=== PATIENT | female | born 1955 | race African-American/Black ===

== ENCOUNTER → 2018-01-11 | Outpatient (CLI) | payer OTHER ==
[~2018-01-11] MED LIST: ACCUNEB SO1.25 MG/1 INH; ACETAMINOPHEN325 M1 PO; ADVAIR 500-501 EACH INH; ALAVERT10 MG PO; ALBUTEROL2.5 MG/31 INH; ALLEGRA ALLERG180 MG PO; AMARYL4 MG PO; AMITIZA 24 MCG24 MC1 PO; ASA81BEC PO; BENAZEPRIL HCL40 MG PO; BENAZEPRIL HCL5 MG PO; BENTYL20 MG PO; CARVEDILOL25 MG PO; CLARITIN-D 24 H1 TA1 PO; COLACE100 MG PO; COMBIVENT RESPIM4 GM INH; CRESTOR20 MG PO; DEXILANT60 MG PO; DIGOXIN125 MCG PO; DILTIAZEM 24HR180 M1 PO; DOXYCYCLINE 10100 M1 PO; DUONEB 2.5-0.5 M3 ML INH; FLONASE 0.05%50 MCG NASAL; FLUCONAZOLE 10100 MG PO; GLUCOPHAGE1000 MG PO; GLUMETZA1000 PO; LANOXIN 0.120.125 M1 PO; LANTUS SUBQ; LASIX 40 MG TAB40 M1 PO; LEVAQUIN 500 M500 M2 PO; LUMIGAN2.5 M1 OPHTHALMIC; MAGNESIUM250 M1 PO; MELATONIN3 MG PO; MENOPAUSE SUPPO20 MG PO; MENOPAUSE SUPPORT PO; MIRALAX17 GM PO; NASONEX17 GM NASAL; NEURONTIN 300300 M1 PO; NEXIUM 40 MG CA40 M1 PO; NEXIUM40 MG PO; NOVOLOG100 UNIT/1 SUBQ; PACERONE 200 M200 M1; PACERONE 200 M200 M1 PO; POTASSIUM CHLO20 ME1 PO; PREDNISONE 20 M20 M1 PO; PREDNISONE 20 M20 MG PO; RANEXA 500 MG500 M1 PO; ROBAXIN 750 MG750 M1 PO; SINGULAIR 10 MG10 M1 PO; SOTALOL 120 MG120 M1 PO; SPIRIVA INH; SSD CREAM 1% 5050 G1 TOP; SYMBICORT160 MCG/4. INH; TESSALON PERLE100 MG PO; TRAMADOL 50 MG50 MG PO; VITAMIN B-12500 MCG PO; XALATAN2.5 ML OP; XARELTO10 M1 PO; XARELTO10 MG PO; XARELTO20 MG PO; XOPENEX HFA15 GM INH; ZOLOFT100 MG PO
== END ==
LOC: RAD 10:09
DX: Z12.31 Encounter for screening mammogram for malignant neoplasm of breast (principal)

== ENCOUNTER 2018-12-17 18:45 | Inpatient (IN) | payer OTHER ==
[~2018-12-17] VITALS: Ht 172.7 cm; Wt 123.4 kg
--- NOTE | ~2018-12-17 | O ---
[facility] [place] [address] OPERATIVE REPORT Name: AQUILES BRAN Room #: 452-P ADM IN M.R.#: [id number] Admission: 12/17/18 ������������������ Attend Phys: Juan Skinner MD Discharge: ������������������ Date of : 57 Report #: [id number] THIS REPORT FOR: //name// CC: Oliver Luciano PREOPERATIVE DIAGNOSIS: Left trimalleolar fracture. POSTOPERATIVE DIAGNOSIS: Left trimalleolar fracture. PROCEDURE: ORIF of trimalleolar fracture with fixation of the fibula and the medial malleolus and syndesmotic screws for support because of fragile patient. ANESTHESIA: General with a leg block and a local block. TOURNIQUET: Thigh, 350. DESCRIPTION OF PROCEDURE: The patient was transported to the Operating Room and placed on the operating table in supine position. The left lower extremity was prepped and draped in the usual sterile manner. General anesthesia was already administered, leg block was already given. Attention directed to the left ankle. Started with the left lateral ankle first, so a 10 cm incision was made along the lateral aspect of the ankle from the distal fibula proximally. Incision was deepened via sharp and blunt dissection being careful to retract all vital structures. Incision was carried down to the bone. The fracture fragment was easily visualized and cleaned of any interposing soft tissue and then reduced with bone reduction clamps. Excellent reduction was noted right away. C-arm was used to identify this good reduction and good length of the fibula, which was noted. Then, a lag screw was placed across the fracture fragments in an anterior to posterior position approximately 18 mm, ____ cortical screws with a lag technique. Then, a distal fibular plate from Sc[place]ey set was applied. ____ was applied using AO fixation technique. Excellent rigid fixation was noted. C-arm showed excellent length and rigid fixation. Attention was turned to the medial malleolus where an incision was made along the medial malleolus and carried down to ____ of the fracture site using [facility] [address] [place] [address] OPERATIVE REPORT Name: AQUILES BRAN Room #: 452-P [facility] IN .R.#: [id number] Admission: 12/17/18 ������������������ Attend Phys: Juan Skinner MD Discharge: ������������������ Date of : 57 Report #: [id number] and blunt dissection. ____ easily cleaned out the fracture fragment of any interposing soft tissue and then reduced with bone reduction clamps. I then used 4.0 cannulated screws for reduction using AO fixation technique. Both wounds were flushed with normal saline and bacitracin mix. It was decided to put more screws in across the fibula and tibia for more support. Her bone was somewhat soft, but she is very fragile and have a feeling she will have difficult time staying off her foot and I think she will have a difficult time controlling her blood sugars even though we have somebody talking about it and try to adjust them as much as possible after the last 3 days in the hospital. Substitutes and running screws were crossed through more support. The wounds were then closed using 2-0 Vicryl for deep tissue, 3-0 Vicryl for subcutaneous tissue and then 2-0 nylon for approximating the skin using a running baseball stitch. I dressed with Xeroform, fluffs, Jin, and put in a sugar tong posterior splint keeping the foot and ankle neutral position. The patient tolerated the procedure well and left the Operating Room in stable condition with neurovascular status vital status intact. The patient will be nonweightbearing. Follow up in my office in approximately 1 week. We will put her on p.o. Demerol, also she is going to bulk picker the oxycodone and Percocet. ��������������������������������������������� ���������������������������������������� By: ��������������������������������������������� 1521 1805 Juan Ramon Luciano, DWIGHT /nt
[2018-12-17 18:54] VITALS: BP 109/76; BP 168/100
[2018-12-17 19:35] LABS: ABSOLUTE NEUTROPHILS 8.6 thou/uL (1.4-8.2); BASOPHILS 0.6 % (0.0-2.0); EOSINOPHILS 1.1 % (0.0-3.0); HEMATOCRIT 41.9 % (37.0-47.0); HEMOGLOBIN 13.8 gm/dL (12.0-15.0); LYMPHOCYTES 15.7 % (24.0-44.0); MCHC 33.1 g/dL (28.0-37.0); MCV 84.7 fL (80.0-100.0); MONOCYTES 8.3 % (1.0-8.0); PLATELET COUNT 372 thou/uL (150-400); POLYS 74.3 % (36.0-66.0); RBC 4.94 mil/uL (4.20-5.00); RDW 15.5 % (10.5-14.5); WBC 11.6 thou/uL (4.0-11.0)
[2018-12-17 19:39] LABS: ANION GAP 9 mmol/L (7-16); BUN 27 mg/dL (7-18); CALCIUM 9.6 mg/dL (8.5-10.1); CHLORIDE 92 mmol/L (98-107); CO2 35 mmol/L (21-32); CREATININE 1.4 mg/dL (0.6-1.0); GLUCOSE 133 mg/dL (74-106); SODIUM 136 mmol/L (136-145)
[2018-12-17 19:40] LABS: POTASSIUM 2.7 mmol/L (3.5-5.1)
[2018-12-17 19:46] LABS: URINE BILIRUBIN NEGATIVE (Negative); URINE BLOOD NEGATIVE (Negative); URINE CLARITY CLEAR; URINE COLOR YELLOW; URINE GLUCOSE-RANDOM* NEGATIVE (Negative); URINE KETONES NEGATIVE (Negative); URINE LEUKOCYTES NEGATIVE (Negative); URINE NITRITE NEGATIVE (Negative); URINE PROTEIN (DIPSTICK) NEGATIVE (Negative); URINE UROBILINOGEN 0.2 E.U./dl (0.2-1.0)
[2018-12-17 19:48] LABS: ALBUMIN 3.3 g/dL (3.4-5.0); MAGNESIUM 1.9 mg/dL (1.8-2.4); SGOT 27 U/L (15-37); SGPT 27 U/L (30-65); TOTAL BILIRUBIN 0.2 mg/dL (<0.1-1.0); TOTAL PROTEIN 8.3 g/dL (6.4-8.2); TROPONIN-I <0.06 ng/mL (<0.06)
[2018-12-17 22:14] VITALS: BP 172/76
[2018-12-17 22:37] VITALS: BP 141/67
[2018-12-17 23:16] VITALS: BP 134/84
--- NOTE | 2018-12-18 02:00 | H ---
[facility] [place] [address] HISTORY AND PHYSICAL Name: AQUILES BRAN Room #: 452-P ADM IN M.R.#: [id number] Admission: 12/17/18 ������������������ Attend Phys: Jc Cabrera MD Discharge: ������������������ Date of : 57 Report #: [id number] THIS REPORT FOR: //name// CC: Oliver Luciano DATE OF SERVICE: 12/17/2018 HISTORY OF PRESENT ILLNESS: This is a 63-year-old -Iranian female who passed out today and fell and she fractured her left ankle. PAST MEDICAL HISTORY: Her past medical history is significant for sarcoidosis, high cholesterol, peripheral neuropathy, hypertension, diabetes, COPD, PTSD, major depression, panic attacks and irritable bowel syndrome. MEDICATIONS: Are as follows: Insulin 30 units subq at bedtime, fexofenadine 180 mg daily, tramadol 50 mg, mometasone furoate, rivaroxaban, Xarelto 20 mg after dinner, potassium chloride 20 mEq p.o. b.i.d., Amaryl 4 mg b.i.d., diltiazem 250 mg b.i.d., Nexium 40 mg, melatonin 6 mg p.o. at bedtime, sliding scale insulin, Amitiza, Lotensin 5 mg, gabapentin 300 mg p.o. t.i.d., sertraline 100 mg 2 tablets daily, Lasix 40 mg, metformin 1000 mg and albuterol nebulizer 2.5. ALLERGIES: ASPIRIN, AZITHROMYCIN, CODEINE, ERYTHROMYCIN, IODINATED CONTRAST AND OXYCODONE. SOCIAL HISTORY: She has no history of tobacco use. No history of alcohol use. No recreational drugs. PAST SURGICAL HISTORY: Previous surgeries include partial hysterectomy, glaucoma, AFib cardioverted x 2 in 2013 and AFib with RVR ablation in 2013. REVIEW OF SYSTEMS : See the chart. SOCIAL HISTORY: The patient is not working. She is with her family today. She has a little bit of anxiety in the ER today. PHYSICAL EXAMINATION: GENERAL: The patient is a well-developed, well-nourished, obese -Iranian female. HEENT: PERRLA. NECK: Supple. No lymphadenopathy. HEART: Regular rate and rhythm, without murmurs or gallops. LUNGS: Clear to auscultation bilaterally. No wheezing. [facility] [address] [place] [address] HISTORY AND PHYSICAL Name: AQUILES BRAN Room #: 452-P [facility] IN M.R.#: [id number] Admission: 12/17/18 ������������������ Attend Phys: Jc Cabrera MD Discharge: ������������������ Date of : 57 Report #: [id number] LABORATORY DATA: The labs show potassium of 2.7, sodium of 136, glucose of 133 and BUN was 27. Alkaline phosphatase 201. X-rays reveal a trimalleolar fracture, displaced. She has intact neurovascular. She does have pain with palpation of the leg, so she is not completely neuropathic. I could feel both dorsalis pedis and posterior tibial arteries easily. ASSESSMENT : Trimalleolar displaced fracture, left. PLAN: Plan is to do a reduction in the ER today after a 15 mL of 0.5% ankle block. She did quite well with it. Then we reduced it and splinted it with a posterior and sugar tong splint. The patient did quite well with it and had no pain while we were doing it. The patient is also complaining of some right ankle pain. There was no bone tenderness. No pain with range of motion, but the x-rays anyways are pending. The patient surgery could be as early as thursday. Pt will need medical eval and clearance before surgery. I will wait for their opinion before setting a time for surger. Pt is Xarelto- this could delay surgery as well. Thank you for your assistance. Please call me if you have any questions. ��������������������������������������������� <ELECTRONICALLY SIGNED> ���������������������������������������� By: Juan Ramon Luciano DPM ��������������������������������������������� 12/18/18 0200 2220 2317 Juan Ramon Luciano DPM /rosie
--- NOTE | 2018-12-18 02:48 | EKG ---
[address] 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 : 1955 Requested By: Barber Ojeda Order Number: [id number] MD: Eloy House Measurements Intervals [place] Rate: 80 P: VT: QRS: 142 QRSD: 144 T: 127 QT: 457 QTc: 528 Interpretive Statements ventricular-paced rhythm No further analysis attempted due to paced rhythm Compared to ECG 03/05/2014 12:25:33 No significant changes Electronically Signed On 12-18-2018 2:48:34 [employer] OPERATOR by Eloy House [email or web address] ��������������������������������������������� <ELECTRONICALLY SIGNED> ���������������������������������������� By: Eloy House MD ��������������������������������������������� 12/18/18 0248 19 19 Eloy House MD /CAITY
[2018-12-18] MEDS ORDERED: TOUJEO MAX300 UNIT/1 SUBQ (03:22)
[2018-12-18] MEDS ORDERED: VICTOZA0.6 MG/0.1 SUBQ (03:23)
[2018-12-18] MEDS ORDERED: LASIX 80 MG TAB80 MG PO (03:24)
[2018-12-18] MEDS ORDERED: METOPROLOL ER-1 EAC1 PO (03:26)
[2018-12-18 03:41] VITALS: BP 116/62
[2018-12-18 05:44] LABS: HEMATOCRIT 40.2 % (37.0-47.0); HEMOGLOBIN 12.8 gm/dL (12.0-15.0); MCH 27.1 pg (26.0-34.0); MCHC 31.9 g/dL (28.0-37.0); MCV 84.9 fL (80.0-100.0); RBC 4.73 mil/uL (4.20-5.00); RDW 15.6 % (10.5-14.5)
[2018-12-18 05:59] LABS: CREATININE 1.2 mg/dL (0.6-1.0)
[2018-12-18 06:05] LABS: POTASSIUM 2.7 mmol/L (3.5-5.1)
--- NOTE | 2018-12-18 07:47 | NUR ---
ADMIT PT ADMITTED TO ROOM 452 FROM ED WITH A LEFT ANKLE FRACTURE RATING PAIN AN 8 TO 10 TAKING FENTANYL WITH NO RELIEF, REPORTED TO JOE CHANDLER AND ORDER CHANGED TO MORPHINE GIVEN 4 MG IVP AND PT FELL ASLEEP SHORTLY AFTER. POSSIBLE ORIF THIS SHIFT.
[2018-12-18 07:58] VITALS: BP 150/73
[2018-12-18 16:25] VITALS: BP 153/63
[2018-12-18 17:41] LABS: CALCIUM 8.9 mg/dL (8.5-10.1); CREATININE 1.3 mg/dL (0.6-1.0); MAGNESIUM 1.9 mg/dL (1.8-2.4)
[2018-12-18 17:51] LABS: POTASSIUM 2.6 mmol/L (3.5-5.1)
[2018-12-18 19:32] VITALS: BP 113/62
[2018-12-19 03:33] VITALS: BP 114/64
[2018-12-19 06:39] LABS: CALCIUM 9.3 mg/dL (8.5-10.1); CREATININE 1.1 mg/dL (0.6-1.0); POTASSIUM 3.1 mmol/L (3.5-5.1)
[2018-12-19 07:52] VITALS: BP 146/56
--- NOTE | 2018-12-19 08:50 | NUR ---
PROGRESS PT UNHAPPY WITH ASSIGNED NURSE AT START OF SHIFT REASSIGNED TO SELF PT CALMED DOWN AND WAS COOPERATIVE WITH CARES AFTER. BED BATH PROVIDED IVF'S AND POTASSIUM GIVEN ORDERED, UP TO BSC TO VOID , HAD USED FEMALE EXTERNAL CATHETER BUT PT KEPT REMOVING IT. TAKING 1.75 MG DILAUDID FOR PAIN WITH SOME EFFECT. LEFT FOOT SPLINTED AND WRAPPED ABLE TO WIGGLE TOES SENSATION INTACT. IV PULLED OUT DURING TRANSFER, DAYSHIFT TO START NEW PRIOR TO SURGERY.
--- NOTE | 2018-12-19 10:55 | 2DMMODE ---
[place] [address] [facility] [place] [address] 2 D/M-MODE ECHOCARDIOGRAM Name: AQUILES BRAN Room #: 452-P ADM IN M.R.#: [id number] ������������� Admission: 12/17/18 ������������� Attend Phys: Jc Cabrera MD Discharge: ��� ������������� ��� Date of : 57 Date of Service: 12/19/18 1054 �� Report #: [id number] �������� ��������������������������������������������[id number] THIS REPORT FOR: //name// APPROVED REPORT Study performed: 12/18/2018 14:10:52 EXAM: Comprehensive 2D, Doppler, and color-flow Echocardiogram Patient Location: Bedside Room #: 452 Status: routine BSA: 2.12 HR: 80 bpm BP: 150/73 mmHg Rhythm: Sinus Arrythmia Other Information Study Quality: Fair Indications CAD, stents, ICD, AFib, COPD, DVT, HLD, Sarcoidosis, Diabetes, Syncope, Dizziness 2D Dimensions RVDd: 35.12 mm IVSd: 10.32 (7-11mm) LVOT Diam: 22.38 (18-24mm) LVDd: 46.03 mm PWd: 11.16 (7-11mm) Ascending Ao: 31.56 (22-36mm) LVDs: 25.00 (25-40mm) Aortic Root: 32.40 mm IVC: 15.00 mm Volumes Left Atrial Volume (Systole) Single Plane 4CH: 44.22 mL Single Plane 2CH: 51.42 mL LA ESV Index: 26.14 mL/m2 Aortic Valve AoV Peak Dimitri.: 1.42 m/s AO Peak Gr.: 8.16 mmHg LVOT Max P.36 mmHg LVOT Max V: 1.16 m/s LUPIS Vmax: 3.20 cm2 Mitral Valve IVRT: 84.58 ms [facility] [address] [address] 2 D/M-MODE ECHOCARDIOGRAM Name: AQUILES BRAN SHABBIR Room #: 452[facility] IN .R.#: [id number] ������������� Admission: 12/17/18 ������������� Attend Phys: Jc Cabrera MD Discharge: ��� ������������� ��� Date of : 57 Date of Service: 12/19/18 1054 �� Report #: [id number] �������� ��������������������������������������������[id number] Pulmonary Valve PV Peak Dimitri.: 0.99 m/s PV Peak Gr.: 3.96 mmHg Tricuspid Valve TR Peak Dimitri.: 3.23 m/s RAP Estimate: 5.00 mmHg TR Peak Gr.: 41.77 mmHg PA Pressure: 47.00 mmHg Left Ventricle The left ventricle is normal size. There is normal LV segmental wall motion. There is normal left ventricular wall thickness. The left ventricular systolic function is normal. The left ventricular ejection fraction is within the normal range. LVEF is 55-60%. This study is not technically sufficient to allow evaluation of the LV diastolic function. Right Ventricle The right ventricle is normal size. The right ventricular systolic function is normal. Atria The left atrium size is normal. Aortic Valve Aortic valve is not well visualized, appears normal. No aortic regurgitation is present. There is no aortic valvular stenosis. Mitral Valve The mitral valve is normal in structure. Trace to mild mitral regurgitation. No evidence of mitral valve stenosis. Tricuspid Valve Tricuspid valve is grossly normal in structure and function. Mild tricuspid regurgitation. Estimated PAP of 45 mmHg. Pulmonic Valve Pulmonic valve is not well visualized. Great Vessels The aortic root is normal in size. The ascending aorta is normal in size. IVC is normal in size and collapses >50% with inspiration. Pericardium There is no pericardial effusion. [facility] [address] [place] [address] 2 D/M-MODE ECHOCARDIOGRAM Name: AQUILES BRAN Room #: 452-P [facility] IN M.R.#: [id number] ������������� Admission: 12/17/18 ������������� Attend Phys: Jc Cabrera MD Discharge: ��� ������������� ��� Date of : 57 Date of Service: 12/19/18 1054 �� Report #: [id number] �������� ��������������������������������������������[id number] <Conclusion> The left ventricular systolic function is normal. There is normal LV segmental wall motion. LVEF is 55-60%. Aortic valve is not well visualized, appears normal. No aortic stenosis or insufficiency. The mitral valve is normal in structure. Trace to mild mitral regurgitation. Mild tricuspid regurgitation. Estimated pulmonary artery pressure of 45 mmHg. There is no pericardial effusion. ��������������������������������������������� <ELECTRONICALLY SIGNED> ���������������������������������������� By: Christo Alonso MD, [facility] ��������������������������������������������� 12/19/18 1054 1054 1054 Christo Alonso MD, FAC /INF
--- NOTE | 2018-12-19 14:45 | NUR ---
ASSUMED CARE 0700. AXOX4. LLE SPLINT FOR ANKLE FX. SX CANCELLED PER MD FOR NOT HAVING ECHO RESULTS READY AND UNCONTROLLED BLOOD SUGAR. LATER ON, FOUND OUT ECHO WAS ALREADY DONE YESTURDAY AND RESULTS WERENT READY TILL THIS MORNING. CALLED SURGICAL DEPARTMENT TO SEE IF THEY CAN TAKE THE PATIENT DOWN, NO ANSWER. CALLED AND NOTIFIED OF THE SITUATION. NNO AT THIS TIME. POTASSIUM AND MAGNESIUM REPLACED PER MD ORDER. PAIN MANAGED WITH IV PAIN MEDS. IV REPLACED ON RH DUE TO PT PULLING THE IV OUT. PT IS VERY IRRITABLE. EXTERNAL FEMAKE CATHETER APPLIED. LLE ELEVATED. NO S/S ACUTE DISTRESS NOTED OR REPORTED AT THIS TIME. WILL CONT TO MONITOR FOR ANY CHANGES IN CONDITION.
[2018-12-19 15:38] VITALS: BP 98/56
--- NOTE | 2018-12-20 02:30 | NUR ---
PT GIVEN IV MORPHINE AND FENTANLY FOR PAIN PT WAS ABLE TO GET PAIN RELIEF AND GET SOME SLEEP PT NPO SINCE MIDNIGHT.
[2018-12-20 03:25] VITALS: BP 140/69
[2018-12-20 03:30] LABS: CALCIUM 8.9 mg/dL (8.5-10.1); CREATININE 1.1 mg/dL (0.6-1.0); MAGNESIUM 2.3 mg/dL (1.8-2.4)
[2018-12-20 03:37] LABS: POTASSIUM 4.2 mmol/L (3.5-5.1)
[2018-12-20 03:45] VITALS: BP 141/75
[2018-12-20 03:52] LABS: HEMATOCRIT 34.3 % (37.0-47.0); MCH 27.4 pg (26.0-34.0); MCV 85.7 fL (80.0-100.0); RBC 4.01 mil/uL (4.20-5.00); RDW 16.2 % (10.5-14.5); WBC 13.8 thou/uL (4.0-11.0)
--- NOTE | 2018-12-20 06:39 | NUR ---
PT PULLED OUT IV.
[2018-12-20 08:14] VITALS: BP 127/73
--- NOTE | 2018-12-20 08:57 | NUR ---
PLAN FOR Pt TO HAVE SURGERY TODAY. WILL HOLD PT UNTIL AFTER SURGERY. WILL NEED UPDATED WEIGHTBEARING ORDERS POST-OP.
--- NOTE | 2018-12-20 10:43 | NUR ---
RD consult received for pt with diabetes. Long hx diabetes, pt voices BG usually controled if she watches closely what eating. States follows 45g carbs per meal, low sodium diet. Hospital BG elevated, requires insulin. No A1C available. Appetite is usually good. NPO for surgery left ankle fracture. Pt voiced no questions. Low nutrition risk
--- NOTE | 2018-12-20 11:50 | NUR ---
chart review, pt going to procedure around 1300. cm visited with pt at bedside. she is a & o x 3 with some forgetfulness, noted her yell out x 1 during visit " oh just muscle spams and will be ok"/vance. intro to dcp, transition of care, home health and post acute. " live in senior disabled apartment at [facility]. no stairs, have grab bars, shower chair, walker, cane and power scooter that does not work and do not remember company but been told has to be 5 years before can look into getting another one and this is the 5th year. donn, getting new nurse through [facility] to set up my medication, that might be the problem right there. my daughter (chichi Mcgill) does community based services for me, 3 hr m-f. daughter takes me places or have to use [employer] for transportation. not sure what will need till after surgery, i am going at 1300, thanks for stopping by"/vance. will cont following as needed for dc needs.
--- NOTE | 2018-12-20 15:23 | NUR ---
TOWARDS POC PT A/O X4, VSS,AFEBRILE. PAIN MANAGED BY MEDS. PT WENT TO SURGERY AT 1230H.
[2018-12-20 16:30] VITALS: BP 125/107; BP 141/79
[2018-12-20 18:14] VITALS: BP 110/54
[2018-12-20 19:29] VITALS: BP 130/73
[2018-12-21 03:16] VITALS: BP 126/64
[2018-12-21 04:03] LABS: CALCIUM 8.8 mg/dL (8.5-10.1); CREATININE 1.2 mg/dL (0.6-1.0); MAGNESIUM 2.1 mg/dL (1.8-2.4); POTASSIUM 4.1 mmol/L (3.5-5.1)
[2018-12-21 04:39] LABS: HEMATOCRIT 33.2 % (37.0-47.0); HEMOGLOBIN 10.6 gm/dL (12.0-15.0); MCH 27.6 pg (26.0-34.0); MCV 86.4 fL (80.0-100.0); RBC 3.85 mil/uL (4.20-5.00); RDW 16.4 % (10.5-14.5); WBC 12.2 thou/uL (4.0-11.0)
--- NOTE | 2018-12-21 05:15 | NUR ---
PATIENT ALERT AND ORIENTED X4. PATIENT HAS MOOD SWINGS FROM VERY CALM TO VERY AGGITATED. C/O NOT GETTING HER MEDS, THE WAY SHE WAS TREATED, HOWEVER DOES NOT HAVE ANY COMPLAINTS WITH THIS CAR DEALER. SCREAMED AND HOLLERED AT SEVERAL STAFF MEMBERS. BROUGHT IN SEVERAL MEDS. SENT DOWN TO PHARMACY. IV PATENT. EXTERNAL CATH INTACT. SLEPT VERY LITTLE THIS SHIFT. C/O PAIN SEVERAL TIMES, MED GIVEN WHEN TIME.
[2018-12-21 07:40] VITALS: BP 120/55
[2018-12-21 13:40] VITALS: BP 101/56
--- NOTE | 2018-12-21 14:22 | NUR ---
TOWARDS POC PT A/O X4, CONFUSED AT TIMES, AGITATED AND FUSSY AT TIMES. VSS, AFEBRILE, PAIN MANAGED BY MEDS. HOME MEDICATIONS RETURNED TO PT, SENT HOME. NEUROVASCULAR INTACT ON THE LLE. PT/OT WORK WELL WITH HER, ABLE TO SIT ON THE CHAIR AND USED BEDSIDE COMMODE. LEFT LEG REMAINED NON WEIGHT BEARING ORDERED. WILL CONTINUE TO MONITOR.
--- NOTE | 2018-12-21 15:25 | NUR ---
CARE TEAM INDICATING THAT PT MAY BENEFIT FROM POST ACUTE CARE STAY. CM MET WITH PT AT BEDSIDE THIS DAY AND PROVIDED A LIST OF SKILLED [facility] FACILITIES THAT ARE IN NETWORK WITH HER INSURANCE. PT REQUESTED THAT REFERRAL BE SENT TO [facility] AND [facility] FOR REVIEW FOR POSSIBLE ADMISSION. DC EMAIL MARKETING INTERN TO SEND REFERRALS. CM TO FOLLOW INDICATED WITH DC PLANNING.
--- NOTE | 2018-12-21 15:31 | NUR ---
DP sent referral to [facility] and [facility], patient may possibly discharge tomorrow. OT not in yet, dp will send when in. DP contacted both admission dept. at facilities to let them know about referral. dp will follow up.
[2018-12-21 19:21] VITALS: BP 119/71
--- NOTE | 2018-12-22 01:54 | NUR ---
Assumed care at 1845. Pt resting in bed. Didnt want to have her nasal cannula on and wanted to be discontinue from pulse oximeter. She has been none compliant, refusing to have the call light on so that she can seat on the edge of the bed. Left the call light within reach and bed in lowest position. Will continue to monitor. No identified needs at the moment.
[2018-12-22 03:38] VITALS: BP 90/54
[2018-12-22 05:03] LABS: HEMATOCRIT 34.5 % (37.0-47.0); HEMOGLOBIN 10.8 gm/dL (12.0-15.0); MCH 26.9 pg (26.0-34.0); MCHC 31.3 g/dL (28.0-37.0); MCV 85.8 fL (80.0-100.0); RBC 4.02 mil/uL (4.20-5.00); RDW 16.6 % (10.5-14.5); WBC 11.7 thou/uL (4.0-11.0)
[2018-12-22 05:09] LABS: CALCIUM 8.7 mg/dL (8.5-10.1); CREATININE 1.1 mg/dL (0.6-1.0); MAGNESIUM 1.9 mg/dL (1.8-2.4); POTASSIUM 3.4 mmol/L (3.5-5.1)
[2018-12-22 07:07] VITALS: BP 97/57
--- NOTE | 2018-12-22 10:48 | NUR ---
PATIENT HAS AUTHORIZATION FROM CRISTINA WOODALL, AND [facility] ACCEPTED. MAURY FOSTER HERE IN CM IS GOING TO SPEAK TO PATIENT TO MAKE SURE SHE WANTS DC TO [facility] ORDERED BY [facility]I MADE BY [employer]IST ON 4W. CM TO FOLLOW UP.
--- NOTE | 2018-12-22 12:18 | NUR ---
PT HAS BEEN ACCEPTED FOR ADMISSION TO [facility]. THEY HAVE AUTH AND TRANSPORT IS ARRANGED FOR [id number] VIA [employer] VAN. CHART COPY MADE. ORDERS TO BE FAXED. REPORT TO BE CALLED TO . PT AND SON AWARE AND AGREEABLE. NO OTHER CM INTERVENTION INDICATED AT THIS TIME. CASE CLOSED.
[2018-12-22 13:22] VITALS: BP 108/63
--- NOTE | 2018-12-22 15:35 | NUR ---
ASSUMED CARE AT 0700. BLOOD SUGAR 37 THIS MORNING THAT RESOLVED WITH ORAL JUICE. DR VILLALOBOS SPOKE TO PATIENT ABOUT MAKING SURE SHE EATS AT NIGHT FOR BLOOD SUGAR LEVEL. PT NWB ON LEFT ANKLE. SEEN BY PT/OT TODAY. DC TO REHAB TODAY AT 4PM. REPORT GIVEN TO [facility]. FALL PRECAUTIONS REMAIN IN PLACE. CALLS APPROPRIATLY.
[2018-12-22] MEDS ORDERED: METOPROLOL SUCC50 MG PO (15:38)
[2018-12-22] MEDS ORDERED: DOXEPIN 10 MG C10 M1 PO (15:38)
[2018-12-22] MEDS ORDERED: NOVOLOG100 UNIT/1 SUBQ (15:38)
[2018-12-22] MEDS ORDERED: EFFEXOR XR75 MG PO (15:38)
--- NOTE | 2018-12-22 18:54 | HC ---
[facility] [place] [address] CONSULTATION Name: AQUILES BRAN Room #: 452-P [facility] IN M.R.#: [id number] Admission: 12/17/18 ������������������ Attend Phys: Juan Skinner MD Discharge: 12/22/18 ������������������ Date of : 57 Report #: [id number] THIS REPORT FOR: //name// CC: Oliver Luciano DATE OF SERVICE: 12/21/2018 REFERRAL PHYSICIAN: Dr. Skinner. PRIMARY PHYSICIAN: Dr. Oliver Quintana. She is also followed by Cardiology, Dr. Martinez. REASON FOR REFERRAL: The patient requesting pulmonary consultation. HISTORY OF PRESENT ILLNESS: The patient is a 63-year-old female who was admitted on 12/17/2018 following a fall due to syncope. She sustained a left ankle fracture. The patient has a history of COPD, with an apparent history of sarcoidosis. The patient requested pulmonary evaluation. Since hospitalization, the patient underwent a surgery for her left trimalleolar ankle fracture. This was yesterday. Today, she states that she is having some difficulty breathing, along with bronchitic type symptoms. Otherwise, denies any chest pain. PAST MEDICAL HISTORY: Includes history of COPD, sarcoidosis details unclear, glaucoma, diabetes mellitus type 2, osteoarthritis, atrial fibrillation, undergoing ablation in 2012, DVT involving the left leg in 2007, hypertension, peripheral neuropathy, irritable bowel syndrome, panic attacks, anxiety disorder, PTSD, major depression. PAST SURGICAL HISTORY: As mentioned above including partial hysterectomy. FAMILY HISTORY: Noncontributory. ALLERGIES: ASPIRIN, AZITHROMYCIN, CODEINE, ERYTHROMYCIN, IODINATED CONTRAST, OXYCODONE, REACTION NOT SPECIFIED. MEDICATIONS: Lists are reviewed in the MAR. FAMILY HISTORY: Noncontributory. SOCIAL HISTORY: Denies any tobacco or alcohol use. [facility] [address] [place] [address] CONSULTATION Name: AQUILES BRAN Room #: 452-P [facility] IN [facility].#: [id number] Admission: 12/17/18 ������������������ Attend Phys: Juan Skinner MD Discharge: 12/22/18 ������������������ Date of : 57 Report #: [id number] REVIEW OF SYSTEMS: As mentioned above, otherwise 10-point system review negative. PHYSICAL EXAMINATION: GENERAL: She is awake, alert, appears to be mildly distressed. VITAL SIGNS: Temperature is 98 degrees Fahrenheit, pulse is 78, respiratory rate is 15, blood pressure 120/55 mmHg, saturation 97%. HEENT: Normocephalic, atraumatic. NECK: Supple, without lymphadenopathy or thyromegaly. CHEST: Breath sounds are fair, clear without any obvious rales or wheezes. CARDIOVASCULAR: Normal S1, S2. No murmurs or gallop. There is no JVD. There is no carotid bruit. Pulses are 2+/4+ bilaterally. ABDOMEN: Soft, nontender, no organomegaly or masses felt. GENITOURINARY: Deferred. RECTAL: Deferred. EXTREMITIES: No cyanosis, clubbing, edema. LABORATORY DATA: Portable chest x-ray is grossly unremarkable. CT head is unremarkable. Electrolytes normal except for creatinine of 1.2. Liver enzymes unremarkable. WBC 12,200, hemoglobin 10.6. IMPRESSION: 1. Chronic obstructive pulmonary disease, appears to be relatively stable. Continue bronchodilators. 2. History of sarcoidosis, details unclear. Chest x-ray is unremarkable. 3. Recent syncope, resulting in a fall with a left ankle fracture. 4. Atrial fibrillation, status post atrioventricular node ablation, pacemaker placement. 5. Left ankle fracture, status post surgery. 6. Hypertension. 7. Diabetes mellitus. 8. Remote history of deep vein thrombosis. Overall, the patient is fairly stable from pulmonary standpoint. We will continue bronchodilators. DVT and GI prophylaxis as indicated. No evidence of acute respiratory infection is present at this time. We will continue to follow. Thank you for this consultation. ��������������������������������������������� <ELECTRONICALLY SIGNED> ���������������������������������������� By: Tan Ruiz MD ��������������������������������������������� 12/22/18 1854 1826 0838 Tan Ruiz MD /nt
== END 2018-12-22 17:00 | DRG 492 ==
LOC: ER 18:45 → 4W 21:46 → EROBS 21:46 → 4W 22:45
PROVIDERS: Emergency Medicine; Nurse Practitioner Family; Podiatrist Foot & Ankle Surgery; ADMIT Internal Medicine
PROC: 4B02XTZ Measurement of Cardiac Defibrillator, External Approach (ICD-10-PCS; principal; 2018-12-19)
PROC: 0QSH04Z Reposition Left Tibia with Internal Fixation Device, Open Approach (ICD-10-PCS; 2018-12-20)
PROC: 0QSK04Z Reposition Left Fibula with Internal Fixation Device, Open Approach (ICD-10-PCS; 2018-12-20)
DX: S82.852A Displaced trimalleolar fracture of left lower leg, initial encounter for closed fracture (principal); N17.0 Acute kidney failure with tubular necrosis; I50.32 Chronic diastolic (congestive) heart failure; Z68.41 Body mass index [BMI] 40.0-44.9, adult; I42.9 Cardiomyopathy, unspecified; D68.59 Other primary thrombophilia; I95.2 Hypotension due to drugs; I65.21 Occlusion and stenosis of right carotid artery; I11.0 Hypertensive heart disease with heart failure; E87.6 Hypokalemia; I48.2 Chronic atrial fibrillation; J44.9 Chronic obstructive pulmonary disease, unspecified; H40.9 Unspecified glaucoma; F32.9 Major depressive disorder, single episode, unspecified; F43.10 Post-traumatic stress disorder, unspecified; F41.1 Generalized anxiety disorder; E78.00 Pure hypercholesterolemia, unspecified; M13.869 Other specified arthritis, unspecified knee; F41.0 Panic disorder [episodic paroxysmal anxiety]; T50.2X5A Adverse effect of carbonic-anhydrase inhibitors, benzothiadiazides and other diuretics, initial encounter; D86.9 Sarcoidosis, unspecified; E11.42 Type 2 diabetes mellitus with diabetic polyneuropathy; E66.01 Morbid (severe) obesity due to excess calories; W18.30XA Fall on same level, unspecified, initial encounter; I25.10 Atherosclerotic heart disease of native coronary artery without angina pectoris; Z95.5 Presence of coronary angioplasty implant and graft; Y93.89 Activity, other specified; Y92.89 Other specified places as the place of occurrence of the external cause; Y99.8 Other external cause status; Z87.891 Personal history of nicotine dependence; Z86.718 Personal history of other venous thrombosis and embolism; Z95.810 Presence of automatic (implantable) cardiac defibrillator; Z90.710 Acquired absence of both cervix and uterus; Z79.01 Long term (current) use of anticoagulants; Z79.4 Long term (current) use of insulin; Z79.899 Other long term (current) drug therapy; Z88.5 Allergy status to narcotic agent; Z88.8 Allergy status to other drugs, medicaments and biological substances; Z88.6 Allergy status to analgesic agent; Z88.1 Allergy status to other antibiotic agents; Z91.041 Radiographic dye allergy status
CPT/HCPCS: 10045; 50010; 50101; 50386; 51741; 55430; 56524; 56525; 57091; 57181; 62110; 62900; 64039; 64042; 70005

== ENCOUNTER 2019-01-06 01:59 | Emergency (ER) | payer OTHER ==
[~2019-01-06] VITALS: Ht 172.7 cm; Wt 115.7 kg
[~2019-01-06 01:59] MED LIST changes: +DOXEPIN 10 MG C10 M1 PO; +EFFEXOR XR75 MG PO; +LASIX 80 MG TAB80 MG PO; +METOPROLOL ER-1 EAC1 PO; +METOPROLOL SUCC50 MG PO; +TOUJEO MAX300 UNIT/1 SUBQ; +VICTOZA0.6 MG/0.1 SUBQ
[2019-01-06 02:35] LABS: ABSOLUTE NEUTROPHILS 5.7 thou/uL (1.4-8.2); BASOPHILS 0.7 % (0.0-2.0); EOSINOPHILS 1.9 % (0.0-3.0); HEMOGLOBIN 9.9 gm/dL (12.0-15.0); LYMPHOCYTES 14.5 % (24.0-44.0); MCH 26.9 pg (26.0-34.0); MCV 84.2 fL (80.0-100.0); MONOCYTES 7.9 % (1.0-8.0); PLATELET COUNT 497 thou/uL (150-400); RBC 3.68 mil/uL (4.20-5.00); RDW 16.6 % (10.5-14.5); WBC 7.7 thou/uL (4.0-11.0)
[2019-01-06 02:39] LABS: CALCIUM 8.5 mg/dL (8.5-10.1); CREATININE 0.9 mg/dL (0.6-1.0); POTASSIUM 3.5 mmol/L (3.5-5.1)
[2019-01-06 05:46] VITALS: BP 143/71
--- NOTE | 2019-01-06 08:01 | EKG ---
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1955 Requested By: Nick Scuhlte Order Number: [id number] MD: Christo Alonso Measurements Intervals [place] Rate: 80 P: [place]: QRS: 152 QRSD: 129 T: QT: 449 QTc: 518 Interpretive Statements Afib/flutter and ventricular-paced rhythm No further analysis attempted due to paced rhythm Compared to ECG 12/17/2018 20:20:05 No significant changes Electronically Signed On 01-06-2019 8:01:36 CDT by Christo Alonso [email or web address] ��������������������������������������������� <ELECTRONICALLY SIGNED> ���������������������������������������� By: Christo Alonso MD, [facility] ��������������������������������������������� 01/06/19 0801 1 1 Christo Alonso MD, FAC /EPI
== END 2019-01-06 05:46 | disposition home or self-care (01) ==
LOC: ER 01:59
PROVIDERS: Emergency Medicine
DX: M79.605 Pain in left leg (principal); J44.1 Chronic obstructive pulmonary disease with (acute) exacerbation; E11.9 Type 2 diabetes mellitus without complications; M19.90 Unspecified osteoarthritis, unspecified site; F32.9 Major depressive disorder, single episode, unspecified; F41.9 Anxiety disorder, unspecified; E78.00 Pure hypercholesterolemia, unspecified; I11.0 Hypertensive heart disease with heart failure; I50.9 Heart failure, unspecified; I48.91 Unspecified atrial fibrillation; Z95.5 Presence of coronary angioplasty implant and graft; Z88.1 Allergy status to other antibiotic agents; Z88.5 Allergy status to narcotic agent; Z88.6 Allergy status to analgesic agent; Z91.041 Radiographic dye allergy status

== ENCOUNTER 2019-01-11 20:52 | Inpatient (IN) | payer OTHER ==
[~2019-01-11] VITALS: Ht 165.1 cm; Wt 130.2 kg
--- NOTE | ~2019-01-11 | P ---
[facility] [place] [address] PROCEDURE REPORT Name: AQUILES BRAN Room #: 213-P [facility] IN M.R.#: [id number] Admission: 01/12/19 ������������������ Attend Phys: Juan Skinner MD Discharge: 01/18/19 ������������������ Date of : 57 Report #: [id number] THIS REPORT FOR: //name// CC: Omar Herron DO Juan Skinner INPATIENT COLONOSCOPY REPORT BRIEF HISTORY: The patient is a 63-year-old woman who was on the rehab service and had a drop in hemoglobin to the 10 gram range. She also reported seeing blood in her stool. In addition, she reports a prior history of colon polyps. PREOPERATIVE DIAGNOSIS: Rectal bleeding, anemia and history of colon polyps. POSTOPERATIVE DIAGNOSIS: Multiple colonic polyps. MEDICATIONS: Deep sedation with propofol per anesthesia. SPECIMENS: 1. A 5-6 mm sessile polyp at 60 cm. 2. Hepatic flexure polyps x 3. 3. Proximal ascending colon polyp. 4. Diminutive cecal polyps x 2. 5. Sessile polyp, mid transverse colon. 6. Small polyp at 70 cm. ESTIMATED BLOOD LOSS: 3 mL. PROCEDURE: Colonoscopy to cecum and terminal ileum with snare polypectomy and biopsy. FINDINGS: Prior to propofol sedation, procedure of colonoscopy discussed with the patient as well as potential risks and its complications. She indicates she understands and desires to proceed. With the patient in the left lateral decubitus position, digital examination was completed, which revealed no abnormalities. Subsequently, the Olympus video colonoscope was introduced in the rectum and advanced under direct vision to the cecum. We had attempted a colonoscopy yesterday, but the prep was inadequate and therefore she returned today after further prepping. Unfortunately, there were still some limitations of the prep, but we were able to complete a colonoscopy today. Upon introduction of the scope and as we advance forward, a 5-6 mm sessile polyp was seen at 60 cm, removed by cold snare polypectomy. At the hepatic flexure, there were three polyps, they were sessile polyps in the range of about 4 to 6 mm and all three were removed without difficulty. In the proximal ascending colon, a diminutive polyp was seen and removed with biopsy [facility] [address] [address] PROCEDURE REPORT Name: AQUILES BRAN Room #: 213-P [facility] IN M.R.#: [id number] Admission: 01/12/19 ������������������ Attend Phys: Juan Skinner MD Discharge: 01/18/19 ������������������ Date of : 57 Report #: [id number] forceps. We then advanced the scope into the cecum and there was a lot of liquid and debris in the cecum. We were able to clean up much material, but not every last bit of it. Two diminutive polyps were seen and removed with biopsy forceps. Unfortunately, there were still remains of some vegetable material in the cecum, we could not fully visualize the entire surface of the cecum. The ileocecal valve was identified. We were able to cross the ileocecal valve and I was able to visualize the distal segment of the terminal ileum, which was inspected and noted to be unremarkable. At that point, the scope was slowly withdrawn and careful circumferential views were obtained. As we withdrew the scope, again there were prep limitations scattered about the colon, much of the prep was good, but in some areas vegetable material in particular beans and particulate matter obscured some views. These fragments were too large to remove with the suction channel. In addition, the polyps identified upon insertion of the scope, a 5 mm sessile polyp was seen and removed by cold snare polypectomy in the mid transverse colon. In addition, at 70 cm upon withdrawal of the scope, a 4 mm polyp was seen and removed by cold snare polypectomy. The scope was withdrawn from the rectum, but no abnormalities were seen. Upon retroflexion, no abnormalities were seen. I did not see significant hemorrhoidal disease. Also, bleeding lesion was not seen on today's examination. The scope was withdrawn. The patient tolerated the procedure well. DISPOSITION: As far as anemia and GI bleeding, I do not see any sources of blood loss. Blood she noted may have come from the anal canal. As for the polyps, we will follow up on the pathology. A total of 9 polyps were identified and removed today. Given the fact that multiple polyps removed and there were some limitations of the prep, I suggest she return in 6 months for a repeat colon. ��������������������������������������������� ���������������������������������������� By: ��������������������������������������������� 1228 0127 Primitivo Landaverde MD /nt
[2019-01-11 20:55] VITALS: BP 195/98
[2019-01-11 21:04] LABS: ABSOLUTE NEUTROPHILS 7.3 thou/uL (1.4-8.2); BASOPHILS 0.4 % (0.0-2.0); EOSINOPHILS 0.5 % (0.0-3.0); HEMATOCRIT 20.6 % (37.0-47.0); MCH 26.8 pg (26.0-34.0); MCHC 31.2 g/dL (28.0-37.0); MCV 85.9 fL (80.0-100.0); MONOCYTES 7.7 % (1.0-8.0); PLATELET COUNT 299 thou/uL (150-400); POLYS 78.4 % (36.0-66.0); WBC 9.3 thou/uL (4.0-11.0)
[2019-01-11 21:06] LABS: HEMOGLOBIN 6.4 gm/dL (12.0-15.0)
[2019-01-11 21:11] LABS: BE(vivo) -4.8 mmol/L (-2 to +3); HCO3 21.8 mmol/L (22.0-26.0); PO2 241.3 mmHg (80.0-100.0); sO2 99.4 % (92.0-98.0)
[2019-01-11 21:12] LABS: pH 7.285 (7.360-7.450)
[2019-01-11 21:13] LABS: CALCIUM 6.1 mg/dL (8.5-10.1); CREATININE 0.7 mg/dL (0.6-1.0)
[2019-01-11 21:22] LABS: ALBUMIN 1.9 g/dL (3.4-5.0); TOTAL BILIRUBIN 0.2 mg/dL (<0.1-1.0); TOTAL PROTEIN 5.2 g/dL (6.4-8.2); TROPONIN-I 0.06 ng/mL (<0.06)
[2019-01-11] MEDS ORDERED: ASPIR-TRIN325 MG PO (22:27)
[2019-01-11] MEDS ORDERED: BIOTENE1000 ML PO (22:28)
[2019-01-11 22:36] LABS: BE(vivo) 0.5 mmol/L (-2 to +3); HCO3 26.5 mmol/L (22.0-26.0); PCO2 VENOUS 48.8 mmHg (41.0-51.0); PO2 VENOUS 36.4 mmHg (35.0-45.0)
[2019-01-11] MEDS ORDERED: VITAMIN D2000 UNIT PO (22:38)
[2019-01-11] MEDS ORDERED: CALCIUM 600 +1 EA11 PO (22:38)
[2019-01-11] MEDS ORDERED: CYCLOBENZAPRINE5 MG PO (22:40)
[2019-01-11] MEDS ORDERED: MIRALAX17 GM PO (22:41)
[2019-01-11] MEDS ORDERED: MUCUS RELIEF600 M1 PO (22:53)
[2019-01-11] MEDS ORDERED: ROBITUSSIN100 MG/53 PO (22:54)
[2019-01-11] MEDS ORDERED: NORCO 7.5-3251 EACH PO (22:54)
[2019-01-11] MEDS ORDERED: LANTUS SUBQ (22:55)
[2019-01-11] MEDS ORDERED: IPRAT-ALBUT 0.5-3 ML INH (22:56)
[2019-01-11] MEDS ORDERED: LASIX 40 MG TAB40 M2 PO (22:57)
[2019-01-11] MEDS ORDERED: XALATAN2.5 ML OPHTHALMIC (23:07)
[2019-01-11] MEDS ORDERED: SYNTHROID50 MCG PO (23:07)
[2019-01-11] MEDS ORDERED: NORCO 10-325 T1 EACH PO (23:08)
[2019-01-11] MEDS ORDERED: MEDROL4 MG PO (23:09)
[2019-01-11] MEDS ORDERED: METOPROLOL TART25 MG PO (23:10)
[2019-01-11] MEDS ORDERED: MULTIVITAMINS1 EAC5 PO (23:11)
[2019-01-11] MEDS ORDERED: NOVOLOG100 UNIT/1 SUBQ (23:13)
[2019-01-11] MEDS ORDERED: NYSTATIN 100,0015 G1 TOP (23:17)
[2019-01-11] MEDS ORDERED: ONDANSETRON HCL4 M2 PO (23:18)
[2019-01-11] MEDS ORDERED: VITAMINC500 PO (23:19)
--- NOTE | 2019-01-11 23:33 | NUR ---
VERIFIED WITH PT THAT SHE IS OKAY WITH INFORMATION BEING SHARED WITH [facility]LEXANDRA [facility]. GAVE MATTHEW AN UPDATE.
[2019-01-12] VITALS (27 sets, daily range): BP systolic 103–151; BP diastolic 51–87
--- NOTE | 2019-01-12 02:24 | NUR ---
PT ARRIVED AT 0200 BY ED STRETCHER IN STABLE CONDITION. PT ORIENTED TO ROOM. PLACED ON TELEMETRY. ED RN ZAIN STARTED A RIGHT EJ IV HER RIGHT HAND PIV WAS NOT IN PLACE. WILL CALL BOB FIGUEROA AND NOTIFY HER PT IS HERE ON UNIT.
[2019-01-12 03:23] LABS: CALCIUM 7.9 mg/dL (8.5-10.1); CREATININE 1.1 mg/dL (0.6-1.0)
[2019-01-12 03:27] LABS: POTASSIUM 4.1 mmol/L (3.5-5.1)
[2019-01-12 03:47] LABS: % SATURATION 7 % (20-39); IRON 21 ug/dL (50-170); TIBC 321 ug/dL (250-450)
[2019-01-12 04:14] LABS: FOLIC ACID 12.4 ng/mL (8.6-58.9)
[2019-01-12 04:15] LABS: HEMATOCRIT 29.5 % (37.0-47.0)
[2019-01-12 04:20] LABS: HEMOGLOBIN 9.4 gm/dL (12.0-15.0)
--- NOTE | 2019-01-12 04:44 | NUR ---
PT CURRENTLY RESTING COMFORTABLE IN BED. REMAINS ON BIPAP AT 40% FIO2 SATS 100% PT HAS HAD NO C/O PAIN. AM LABS REVIEWED AND DISCUSSED WITH BOB FIGUEROA NP. PT HAS HOLLINS CATHETER WITH GOOD OUTPUT.
[2019-01-12 15:41] LABS: MAGNESIUM 1.8 mg/dL (1.8-2.4)
--- NOTE | 2019-01-12 15:53 | NUR ---
SUMMARY: ALERT AND ORIENTED. MEDICATED FOR PAIN WITH PRN MEDS. VITALS STABLE AND TOLERATING DIET. WENT TO [facility] MED FOR VQ SCAN BUT UNABLE TO TOLERATE LYING FLAT DUE TO SHORTNESS OF BREATH. PULOMONOGIST CONSULTED. O2 PER NC, BIPAP AT HS. CAST NOTED ON LLE. TRANSFER ORDERS IN [facility], WILL TRANSFER WHEN ROOM IS AVAILABLE IN CCU.
--- NOTE | 2019-01-12 17:10 | EKG ---
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 : 1955 Requested By: Una Roberts Order Number: [id number] MD: Christo Alonso Measurements Intervals [place] Rate: 80 P: [place]: QRS: 153 QRSD: 126 T: 127 QT: 464 QTc: 536 Interpretive Statements Afib/flutter and ventricular-paced rhythm No further analysis attempted due to paced rhythm Compared to ECG 01/06/2019 02:12:33 No significant changes Electronically Signed On 01-12-2019 17:09:53 CDT by Christo Alonso [email or web address] ��������������������������������������������� <ELECTRONICALLY SIGNED> ���������������������������������������� By: Christo Alonso MD, [facility] ��������������������������������������������� 01/12/19 1709 51 51 Christo Alonso MD, [facility] /EPI
--- NOTE | 2019-01-12 17:22 | NUR ---
PT ADMITTED RELATED TO SWELLING IN LEGS AND SOB. CM REVIEWED CHART AND SPOKE WITH CARE TEAM. CM MET WITH PT AT BEDSIDE THIS DAY. PT IS A&O X4. CM ROLE INTRODUCED. 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 PRIOR TO THAT SHE HAD BEEN LIVING IN A SENIOR APARTMENT [facility]. SHE INDICATED THERE AREN'T ANY STEPS TO ENTER. SHE INDICATED SHE HAS A POWER WC, 4WW, FWW, CANE, GB, AND SHOWER CHAIR TO ASSIST WITH MOBILITY. PT INDICATED SHE HAD HH SERVICES [facility] IN THE PAST BUT STATED THAT [facility] USE [facility] SO SHE WOULD LIKE TO USE THEM FOR SERVICES ONCE APPROPRIATE. PT'S DTR PAVEL PROVIDES HCBS SERVICES 3HRS PER DAY M-. PT INDICATED HER DTR ASSISTS WITH TRANSPORTATION OR SHE TAKES SHARE A FARE. PT INDICATED SHE ISN'T SURE IS SHE WOULD BE RETURNING TO [facility] UPON DC. CM TO FOLLOW INDICATED WITH DC PLANNING.
[2019-01-12 22:08] LABS: GLYCOHEMOGLOBIN (HGB A1C) 8.5 % (4.8-5.6)
--- NOTE | 2019-01-12 22:32 | NUR ---
ASSUMED CARE @ 1900 01/12/19, PT ASSESSMENT AND VSS COMPLETE PER CCU PROTOCOL. PT ALERT AND ORIENTED X 4, PT ABLE TO FOLLOW SIMPLE COMMANDS, PT GIVEN HYDROCODONE FOR PAIN DURING THE SHIFT. PT V PACED ON THE MONITOR, EDEMA NOTED SEE PROCESS INTERVENTION FOR SPECIFICS. PT ON 2.5L OF 02, SATS IN THE HIGH 90'S, SOB NOTED WITH EXERTION. ACHS ACCUCHECKS, CARB CONTROLLED DIET IN PLACE. HOLLINS IN PLACE GOP NOTED. CAST ON THE LEFT LEG FROM BROKEN ANKLE. PT ABLE TO PIVOT FROM BED TO CHAIR WITH STANDY BY ASSIST. REPORT GIVEN TO SUSI ARRIOLA ON CCU UNIT.
[2019-01-13 00:32] VITALS: BP 119/56
[2019-01-13 03:45] VITALS: BP 125/76
[2019-01-13 04:04] LABS: CALCIUM 8.1 mg/dL (8.5-10.1); CREATININE 0.6 mg/dL (0.6-1.0); MAGNESIUM 1.8 mg/dL (1.8-2.4)
--- NOTE | 2019-01-13 04:20 | NUR ---
PT. ARRIVED AROUND 2229; AOX4; C/O PAIN 05/04; PRN PAIN MEDICATION GIVEN IN ICU AT 2100; ST. NEED SOMETHING STRONGER; "I HAVE LOW PAIN INTOLERANCE"; CDS SALES ADVISOR CONTACTED; ORDER RECEIVED; PRN PAIN MEDICATION GIVEN; PAIN RE-ASSESSMENT 04/04; COUGHING THROUGH THE NIGHT; SOB WITH EXERTATION; NO PRN COUGH MEDICATION; SCHEDULE COUGH MEDICATION; WILL PASS ON REPORT; ABLE TO REST SOME THROUGH THE NIGHT; ASSESSMENT CHARGED; WILL PASS ON REPORT.
[2019-01-13 08:00] VITALS: BP 104/70
[2019-01-13 10:52] VITALS: BP 116/61
--- NOTE | 2019-01-13 10:56 | NUR ---
ON-GOING ASSESSMENT: CM REVIEWED CHART AND MET WITH PATIENT AT THE BEDSIDE. PT STATED SHE DID COME IN TO US FROM [facility] AND WOULD PREFER TO RETURN THERE IF SHE STILL HAS SNF DAYS LEFT. PT STATES IF SHE DOES NOT SHE PREFERS HOME WITH HH ([facility] SHE STATES THAT IS WHO [facility] USES). CM REQUESTED EXPLOSIVE ORDNANCE DISPOSAL MANAGER FAX REFERRAL TO [facility] AND CHECK HOW MANY SNF DAYS SHE HAS. CM WILL CONTINUE TO FOLLOW TO ASSIST NEEDED.
--- NOTE | 2019-01-13 13:23 | NUR ---
ASSUMED CARE AT 0700, SHIFT ASSESSMENT DONE, VSS, MEDS GIVEN. RAMAINS ON 2.5 L NC, SOB WITH ACTIVITY. ACHS WITH LOW DOSE INSULIN COVERAGE. SITTING IN THE CHAIR THIS AM. REPORTED PAIN TO RIGHT LOWER EXTREMITY, PRN PAIN MEDE GIVEN. WILL CONTINUE TO ASSESS AND ASSIST WITH ADLs NEEDED.
[2019-01-13 14:34] VITALS: BP 113/60
[2019-01-13 15:44] LABS: HEMATOCRIT 31.9 % (37.0-47.0); HEMOGLOBIN 10.2 gm/dL (12.0-15.0); MCHC 31.9 g/dL (28.0-37.0); MCV 81.6 fL (80.0-100.0); RBC 3.91 mil/uL (4.20-5.00); WBC 9.4 thou/uL (4.0-11.0)
[2019-01-13 16:03] LABS: CALCIUM 8.4 mg/dL (8.5-10.1); CREATININE 1.2 mg/dL (0.6-1.0); MAGNESIUM 1.8 mg/dL (1.8-2.4); POTASSIUM 3.8 mmol/L (3.5-5.1); TROPONIN-I 0.13 ng/mL (<0.06)
--- NOTE | 2019-01-13 18:01 | NUR ---
PT STATES SHE WANTS TO DC HOME RATHER THAN RETURN TO SKILLED REHAB AT [facility]. UPDATE TO GAVIN FROM [place] THIS AFTERNOON. THERAPY EVAL ORDERED AND WILL NEED HOME HEALTH RN/PT/OT/BATH AIDE AND SWS AT SD.
[2019-01-13 20:08] VITALS: BP 150/59
--- NOTE | 2019-01-14 04:08 | NUR ---
PT. C/O THROUGH THE NIGHT; PRN PAIN MEDICATION GIVEN; REQUESTED TRAMADOL; NO ORDER FOR TRAMADOL; EXPLAINED IT; ST. MORNING NURSE ST. HAD PRN TRAMADOL; SHOWED RECORDS WITH NO PRN TRAMADOL; ST. UNDERSTANDING; REQUESTED ICE PACK FOR PAIN; ICE PACK GIVEN; AROUND 0050 PRN PAIN MEDICATION GIVEN; REQUESTED CINDI HOSE TO BE REMOVED FROM R. LEG; AFTER 0300 PT. ABLE TO REST WITH EYES CLOSE; ASSESSMENT CHARGED; FOLLOWIN POC; WILL PASS ON REPORT.
[2019-01-14 05:18] VITALS: BP 108/68
[2019-01-14 06:23] LABS: MCH 26.5 pg (26.0-34.0); MCHC 32.3 g/dL (28.0-37.0); MCV 82.1 fL (80.0-100.0); RBC 3.77 mil/uL (4.20-5.00); RDW 17.3 % (10.5-14.5); WBC 7.8 thou/uL (4.0-11.0)
[2019-01-14 06:33] LABS: CALCIUM 8.8 mg/dL (8.5-10.1); POTASSIUM 3.7 mmol/L (3.5-5.1)
[2019-01-14 09:14] VITALS: BP 136/62
--- NOTE | 2019-01-14 12:44 | NUR ---
FAXED REFERRAL TO [facility] SPOKE WITH GAVIN IN ADM. SHE RECEIVED REFERRAL AND REVIEWED AND WILL BE ABLE TO ACCEPT PT. AT DISCHARGE. PT. NOT DISCHARGING TODAY IF DISCHARGED OVER WEEKEND FAX DC ORDERS TO [phone] AND CALL REPORT TO [phone].
[2019-01-14 12:49] VITALS: BP 158/63
--- NOTE | 2019-01-14 13:59 | NUR ---
PT IS AGREEABLE TO RETURN TO SKILLED REHAB AT [facility] WHEN MEDICALLY STABLE., PER GAVIN AT [facility], INSURANCE AUTH OBTAINED. PER DR. VILLALOBOS, PT NOT READY TODAY, GI CONSULTED R/T ANEMIA AND HX OF CROHN'S WITH PLAN TO HOLD XARELTO AND DO EGD/COLONOSCOPY THU OR MON. UPDATE TO GAVIN AT [place].
[2019-01-14 16:00] VITALS: BP 114/71
--- NOTE | 2019-01-14 19:29 | NUR ---
ASSUMED CARE OF PT AT 0700. PT A&OX4. PT WAS UP WITH PHYSICAL THERAPY AND HOPPED TO DOOR AND ASSISTED BACK. PT ABLE TO TRANSFER TO CHAIR AND BSC WITH ASSIST OF ONE. PT HAD VQ SCAN TODAY AND ABLE TO TOLERATE LYING FLAT FOR PROCEDURE. PT VITALS WITHIN NORMAL LIMITS AND WAS VPACED ON TELEMETRY. PT'S BLOOD SUGARS CONSISTANTLY HIGH AND SLIDING SCALE CHANGED TO HIGH DOSE. WILL CONT WITH POC.
[2019-01-14 19:47] VITALS: BP 133/65
[2019-01-15 04:22] VITALS: BP 148/77
[2019-01-15 04:35] LABS: HEMATOCRIT 30.5 % (37.0-47.0); HEMOGLOBIN 10.2 gm/dL (12.0-15.0); MCH 27.2 pg (26.0-34.0); MCHC 33.3 g/dL (28.0-37.0); MCV 81.8 fL (80.0-100.0); RBC 3.73 mil/uL (4.20-5.00); RDW 16.6 % (10.5-14.5)
[2019-01-15 04:55] LABS: CALCIUM 9.1 mg/dL (8.5-10.1); CREATININE 1.1 mg/dL (0.6-1.0); MAGNESIUM 2.1 mg/dL (1.8-2.4); POTASSIUM 4.1 mmol/L (3.5-5.1)
--- NOTE | 2019-01-15 04:55 | NUR ---
ASSUMED PT CARE AT 1900. PT A/OX4, VITAL SIGNS STABLE, ASSESSMENT CHARTED. NO COMPLAINTS OF CHEST PAIN. LOWER EXTREMITY PAIN ADEQAUTELY MANAGED WITH PAIN MEDICATION. PT MAINTAINED ON 2.5L O2 THROUGH THE NIGHT. PT ABLE TO PIVOT TO BEDSIDE COMMODE. NON-WEIGHT BEARING ON LEFT LOWER EXTREMITY. PT RESTED WELL THROUGH THE NIGHT. PROGRESSING TOWARD PLAN OF CARE. WILL CONTINUE TO MONITOR.
[2019-01-15 08:41] VITALS: BP 149/77
[2019-01-15 12:00] VITALS: BP 135/62
[2019-01-15 14:31] VITALS: BP 124/66
--- NOTE | 2019-01-15 16:40 | NUR ---
AAOX4 VERY PLEASANT AND COOOPERAIVE. TAKES HYDROCODONE FOR LEFT ANKLE PAIN WITH GOOD RELIEF. GOOD APPETITE. LBM 4 DAYS AGO - MIRALAX GIVEN. LEFT CAST INTACT WITH GOOD CMS TO TOES. O2 AT 4L. RIGHT JUGULAR IV INTACT. REMAINS ON FLUID RESTRICTION. GOOD APPEITE. FAMILY WAS HERE TO VISIT.
[2019-01-15 20:56] VITALS: BP 129/59
[2019-01-16 04:20] LABS: HEMATOCRIT 31.3 % (37.0-47.0); MCH 26.2 pg (26.0-34.0); MCHC 31.9 g/dL (28.0-37.0); RBC 3.82 mil/uL (4.20-5.00); RDW 16.9 % (10.5-14.5); WBC 8.7 thou/uL (4.0-11.0)
[2019-01-16 04:24] VITALS: BP 108/66
[2019-01-16 04:26] LABS: CALCIUM 8.8 mg/dL (8.5-10.1); CREATININE 1.1 mg/dL (0.6-1.0); MAGNESIUM 2.1 mg/dL (1.8-2.4); POTASSIUM 3.8 mmol/L (3.5-5.1)
--- NOTE | 2019-01-16 05:09 | NUR ---
ASSUMED PT CARE AT 1900. PT A/OX4, VITAL SIGNS STABLE, ASSESSMENT CHARTED. PAIN ADEQUATELY MANAGED WITH PAIN MEDICATION. PT HAD SOME COUGHING SPELL, LINK TRAINER TEACHER NOTIFIED, ORDERS RECIEVED. PT WAS GIVEN TESSALON WITH SEEMED TO HELP. PT WAS ABLE TO REST COMFORTABLY AFTERWARDS. NO COMPLAINTS OF SOA. PROGRESSING TOWARD PLAN OF CARE. WILL CONTINUE TO MONITOR.
[2019-01-16 08:26] VITALS: BP 154/72
[2019-01-16 12:34] VITALS: BP 121/74
[2019-01-16 16:23] VITALS: BP 124/59
--- NOTE | 2019-01-16 16:26 | NUR ---
ASSUMED CARE OF PT AT 0700. PT A&OX4, WT BEARING LIMITATION ON LEFT LEG. PT PIVOTS WELL TO BEDSIDE COMMODE AND HOPS TO BATHROOM WITH WALKER. PT'S LUNGS SOUND CLEAR TODAY AND OXYGENATION WITHIN NORMAL LIMITS. PT VITALS WITHIN NORMAL LIMITS EXCEPT PT HAD HIGH SBP IN THE AM AND GIVEN BP MEDS. BLOOD PRESSURE RETURNED TO NORMAL. PT HAD PAIN IN FX LEFT ANKLE, THAT WAS PARTIALLY CONTROLLED WITH MED, ELEVATION AND ICE. PT SEEN BY DR. MARIO AND PLACED ON MIRALAX BOWEL PREP. WILL CONT WITH POC
[2019-01-16 20:00] VITALS: BP 115/49
[2019-01-17 04:00] VITALS: BP 125/64
--- NOTE | 2019-01-17 04:04 | NUR ---
ASSUMED PT CARE AT 1900. PT A/OX4, VITAL SIGNS STABLE, ASSESSMENT CHARTED. NO COMPLAINTS OF CHEST PAIN. PT ON 2L NC O2. PAIN ADEQAUTELY MANAGED WITH PAIN MEDICATION. DAY SHIFT MENTIONED THAT SHE WAS GIVEN A BOWEL PREP FOR HER COLONOSCOPY BUT SHE HAD NOT HAD A BOWEL MOVEMENT. GAVE PT MIRALAX WITH NIGHT MEDS BUT DID NOT HAVE ANY BOWEL MOVEMENT. GI DOCTOR CALLED AND INFORMED. ENEMA WAS ORDERED (1 FOR 0100 AND ANOTHER FOR 0600). ENEMA GIVEN. PT HAD SEVERAL BOWEL MOVEMENTS BUT BM NOT CLEAR YET.FALL PRECAUTIONS IN PLACE. HOURLY ROUNDING PT DID NOT GET MUCH REST BECAUSE OF FREQUENT BMS. PROGRESSING TOWARD PLAN OF CARE. EGD/COLONOSCOPY IN AM. WILL CONTINUE TO CLOSELY MONITOR.
[2019-01-17 04:39] LABS: CALCIUM 8.7 mg/dL (8.5-10.1); HEMATOCRIT 30.4 % (37.0-47.0); MCH 26.7 pg (26.0-34.0); MCHC 32.9 g/dL (28.0-37.0); MCV 81.2 fL (80.0-100.0); POTASSIUM 3.6 mmol/L (3.5-5.1); RBC 3.74 mil/uL (4.20-5.00); RDW 17.1 % (10.5-14.5); WBC 10.1 thou/uL (4.0-11.0)
[2019-01-17 08:53] VITALS: BP 101/63
--- NOTE | 2019-01-17 11:02 | NUR ---
PT HAD BOWEL MOVEMENT AT 1100 AND IT WAS NOT CLEAR. MELODY IN GI NOTIFIED.
--- NOTE | 2019-01-17 11:39 | NUR ---
Assess due to high BMI 47.8=extreme class III obesity. Admitted with COPD, and currently npo for EGD/colonoscopy to assess anemia. Wts elevated, requires lasix. BG elevated with A1C 8.5-pt states understands diet and does not have further questions. On steroid. Resume carb controlled diet following procedure. Low nutrition risk.
--- NOTE | 2019-01-17 13:35 | NUR ---
possible dc later today pending EGD/colonscopy. [facility] accepting and have auth.
--- NOTE | 2019-01-17 16:31 | NUR ---
ASSUMED CARE OF PT AT 0700. PT NOW ON ROOM AIR WITH NORMAL O2 SATS. PT A&OX4, UP WITH WALKER AND ASSIST OF ONE. WT BEARING LIMITATION ON RIGHT LEG. PT HAD SHOWER WITH OCCUPATIONAL THERAPY TODAY, WALKED WITH PHYSICAL THERAPY. PT HAD EGD AND COLONOSCOPY THIS AFTERNOON. COLONOSCOPY TO BE REPEATED TOMORROW DUE TO INADEQUATE BOWEL PREP. PT HAS PAIN PARTIALLY CONTROLLED WITH MEDICATION. WILL CONT WITH POC.
[2019-01-17 16:44] VITALS: BP 111/64
[2019-01-17 19:40] VITALS: BP 107/66
[2019-01-18 03:43] VITALS: BP 112/75
--- NOTE | 2019-01-18 05:20 | NUR ---
PT UP TO BSC TO VOID SEVERAL TIMES THRU THE NOC START BOWEL PREP AGAIN NOW, PT NPO EXCEPT FOR PREP, VSS, PRN PAIN MED GIVEN AT HS FOR C/O LEG PAIN, WILL CON'T TO MONITOR PER PPOC.
[2019-01-18 09:28] VITALS: BP 117/89
--- NOTE | 2019-01-18 10:01 | NUR ---
Assumed pt care at 7am.Assessment completed.Pt blood sugar was 39.1 AMP D50 ivp given as ordered.Pt c/o left ankle pain rated 8/10,hydrocodone given with relief.Blood sugar rechecked 30minutes later and was 110.Pt kept npo for colonoscopy scheduled for later today.Will continue to monitor.
--- NOTE | 2019-01-18 13:23 | P ---
[facility] [address] PROCEDURE REPORT Name: AQUILES BRAN Room #: 213-P ADM IN M.R.#: [id number] Admission: 01/12/19 ������������������ Attend Phys: Juan Skinner MD Discharge: ������������������ Date of : 56 Report #: [id number] THIS REPORT FOR: //name// CC: Omar Herron DO Juan Skinner BRIEF HISTORY: The patient is a 63-year-old woman with recent transferred from rehab to the acute hospital setting due to marked drop in hemoglobin. She also does report seeing blood in her stools. PREOPERATIVE DIAGNOSES: Gastrointestinal bleeding, anemia. POSTOPERATIVE DIAGNOSES: Gastrointestinal bleeding, anemia with incomplete colonoscopy secondary to inadequate prep. MEDICATIONS: Deep sedation with propofol for Anesthesia. SPECIMEN: None. ESTIMATED BLOOD LOSS: None. PROCEDURE: Aborted colonoscopy to sigmoid colon. FINDINGS: Prior to propofol sedation, procedure of colonoscopy was discussed with the patient as well as potential risks and its complications. She indicates she understands and desires to proceed. DESCRIPTION OF PROCEDURE: With the patient in left lateral decubitus position, digital examination was completed which revealed no abnormalities. Subsequently, the Olympus video colonoscope was introduced into the rectum and advanced under direct vision. Unfortunately, as we advanced the scope in the proximal rectum and sigmoid, the parnell were noted to be coated with adherent stool material. As we advanced the scope, the prep got worse. It was felt that we could not obtain a good colonoscopy due to a poor prep and therefore the procedure was abandoned at the level of the sigmoid colon. Scope withdrawn. The patient tolerated the procedure well. DISPOSITION: Incomplete colonoscopy secondary to inadequate prep. We will continue prepping the patient and attempt to repeat her colonoscopy tomorrow. ��������������������������������������������� <ELECTRONICALLY SIGNED> ���������������������������������������� By: Primitivo Landaverde MD ��������������������������������������������� 01/18/19 1323 1442 2201 Primitivo Landaverde MD /nt
--- NOTE | 2019-01-18 13:23 | P ---
[facility] [place] [address] PROCEDURE REPORT Name: AQUILES BRAN Room #: 213-P [facility] IN M.R.#: [id number] Admission: 01/12/19 ������������������ Attend Phys: Juan Skinner MD Discharge: ������������������ Date of : 57 Report #: [id number] THIS REPORT FOR: //name// CC: Omar Herron DO Juan Skinner BRIEF HISTORY: The patient is a 63-year-old woman who was transferred from rehab unit with a drop in hemoglobin of 10. She did report seeing blood in her stools. Etiology of her anemia is not entirely clear. She also has intermittent solid food dysphagia. PREOPERATIVE DIAGNOSES: Anemia and solid food dysphagia. POSTOPERATIVE DIAGNOSES: 1. Mild diffuse gastritis. 2. Solid food dysphagia. MEDICATIONS: Deep sedation with propofol per Anesthesia. SPECIMEN: Biopsies of gastritis. ESTIMATED BLOOD LOSS: 3 mL. PROCEDURE: EGD with biopsy and Wilson dilation. FINDINGS: Prior to propofol sedation, procedure of upper endoscopy and dilation was discussed with the patient as well as potential risks and its complications. She indicates she understands and desires to proceed. DESCRIPTION OF PROCEDURE: With the patient in left lateral decubitus position, the Olympus video endoscope was inserted in the cervical esophagus under direct vision without difficulty. Examination of this organ through its entire length revealed normal esophageal mucosa down the squamocolumnar junction. The squamocolumnar junction was inspected and noted to be unremarkable. No ulcers or erosions were seen. Scope was advanced into the stomach, which examined on end view as well as retroflexed views. There was a modest antral gastritis without ulcers, erosions or obvious bleeding lesions. Upon retroflexion, no mass lesions were seen. Also, I might point out that in the esophagus, there were no strictures or rings seen. The pylorus, duodenal bulb and postbulbar sweep were inspected and noted to be unremarkable. At that point, the scope was slowly withdrawn and careful circumferential views confirmed the above findings. The patient tolerated the procedure well. Subsequently, she was dilated with passage of a 52-Sinhala Wilson dilator. There was no resistance. [facility] [address] [place] [address] PROCEDURE REPORT Name: AQUILES BRAN Room #: 213-P [facility] IN M.R.#: [id number] Admission: 01/12/19 ������������������ Attend Phys: Juan Skinner MD Discharge: ������������������ Date of : 57 Report #: [id number] DISPOSITION: The patient with anemia of uncertain etiology. Bleeding lesions not seen. She does have gastritis. Biopsy was obtained to evaluate for H. pylori. She is empirically dilated due to her complaints of dysphagia. Proceed with colonoscopy at this time. ��������������������������������������������� <ELECTRONICALLY SIGNED> ���������������������������������������� By: Primitivo Landaverde MD ��������������������������������������������� 01/18/19 1323 1435 2119 Primitivo Landaverde MD /nt
[2019-01-18] MEDS ORDERED: POTASSIUM20 PO (13:24)
[2019-01-18] MEDS ORDERED: PROTONIX40 M1 PO (13:24)
[2019-01-18] MEDS ORDERED: PREDNISONE 10 M10 MG PO (13:24)
--- NOTE | 2019-01-18 13:43 | NUR ---
Met with patient plan dc to [facility] today at 1500 via van and oxygen from [place]. Chart copied. Transfer forms faxed. Family and patient notified of time of dc. Rn aware no further needs
--- NOTE | 2019-01-18 13:48 | NUR ---
PT. DISCHARGING BACK TO [facility] FAXED DC ORDERS/SUMMARY TO FACILITY AND SPOKE WITH GAVIN IN ADM. SHE RECEIVED DC ORDERS AND ARRANGED VAN TRANSPORT FOR 1500 TODAY. NOTIFIED SON (SERGE) TRIED NOTIFYING DTR (LORAINE) BETH OF DISCHARGE AND TIME OF TRANSPORT. UNIT NOTIFIED AND CHART COPY PER US. RN TO CALL REPORT TO [phone].
--- NOTE | 2019-01-18 15:05 | PATH ---
[facility] [address] [place] [address] PATHOLOGY RPT PROCEDURE Name: AQUILES BRAN Room #: 213-P ADM IN M.R.#: [id number] ������������������ Admission: 01/12/19 ������������������ Date of : 57 Discharge: Report #: [id number] Path Case #: [id number] [facility] Accession Number: [id number] . 01 Material submitted: . BX GASTRITIS R/O H. PYLORI . 01 Clinical history: . Pre-OP DX: GERD Post-OP DX: Gastritis . 02 Diagnosis: Gastric mucosa, gastritis, rule out H. pylori, endoscopic biopsy: - Moderate reactive gastropathy. - Negative for intestinal metaplasia or atrophy. - Negative for Helicobacter pylori (properly controlled immunohistochemical stain performed). (IUV:pit 01/18/2019) QTP/01/18/2019 . 02 Electronically signed: . Trinh Todd MD, Pathologist NPI- [id number] . 01 Gross description: . Received in formalin labeled "Aquiles Bran, BX gastritis, rule out H. pylori," are multiple segments of abebe soft tissue measuring 1.5 x 0.6 x 0.1 cm in aggregate dimensions. The specimen is filtered and entirely submitted in cassette A1. (TSD; 01/17/2019) TOB/TOB . 02 Pathologist provided ICD-10: K31.9 . 02 CPT . 621930, L57133 Specimen Comment: A courtesy copy of this report has been sent to Specimen Comment: [phone], , . Specimen Comment: Report sent to ,DR VILLALOBOS / DR SANDERS Performed at: [address], [place] [id number] MD Caleb Devries MD Phone: [phone] Performed at: [address] [id number] [address] [address] PATHOLOGY RPT PROCEDURE Name: AQUILES BRAN SHABBIR Room #: 213-P ADM IN M.R.#: [id number] ������������������ Admission: 01/12/19 ������������������ Date of : 57 Discharge: Report #: [id number] Path Case #: [id number] MD Trinh Todd MD Phone: [phone]
--- NOTE | 2019-01-19 15:05 | PATH ---
[facility] [place] [address] PATHOLOGY RPT PROCEDURE Name: AQUILES BRAN Room #: 213-P [facility] IN M.R.#: [id number] ������������������ Admission: 01/12/19 ������������������ Date of : 57 Discharge: 01/18/19 Report #: [id number] Path Case #: [id number] LCA Accession Number: [id number] . 01 Material submitted: . PART A: COLON POLYP 60CM PART B: COLON POLYP HEPATIC FLEXURE X3 PART C: PROXIMAL ASCENDING COLON POLYP PART D: CECAL POLYP X2 PART E: COLON POLYP MID TRANSVERSE PART F: COLON POLYP 70CM . 01 Clinical history: . Pre-OP DX: Anemia, rectal bleeding, Hx of polyps Post-OP DX: Colon polyps . 02 Diagnosis: A. Polyp, at 60 cm, endoscopic biopsy: - Tubular adenoma. - Negative for high grade dysplasia. . B. Polyp x 3, hepatic flexure, endoscopic biopsy: - Few fragments consistent with tubulovillous adenoma. - Few fragments consistent with tubular adenoma. - Negative for high grade dysplasia within any of the fragments sampled. . C. Polyp, proximal ascending colon polyp, endoscopic biopsy: - Tubular adenoma. - Negative for high grade dysplasia. . D. Polyp x 2, cecal polyp, endoscopic biopsy: - Tubular adenoma. - Within one fragment; negative for high grade dysplasia. - Second fragment showing reactive hyperplastic changes without any dysplasia. . E. Polyp, mid transverse, endoscopic biopsy: - Tubular adenoma. - Negative for high grade dysplasia. . F. Polyp, 70 cm, endoscopic biopsy: - Tubular adenoma. - Negative for high grade dysplasia. (IUV/db; 01/19/2019) LBQ/01/19/2019 . 02 Electronically signed: . [address] [address] PATHOLOGY RPT PROCEDURE Name: AQUILES BRAN RICKREALL Room #: 213-P [facility] IN ..#: [id number] ������������������ Admission: 01/12/19 ������������������ Date of : 57 Discharge: 01/18/19 Report #: [id number] Path Case #: [id number] Trinh Todd MD, Pathologist NPI- [id number] . 01 Gross description: . A. Received in formalin labeled "Aquiles Bran, colon polyp 60 cm," are 2 segments of abebe soft tissue measuring 0.8 x 0.3 x 0.3 cm in aggregate dimensions and ranging from 0.4 to 0.5 cm in maximum dimension. The specimen is submitted entirely in cassette A1. . B. Received in formalin labeled "Aquiles Bran, hepatic flexure colon polyp x3," are 7 segments of abebe soft tissue measuring 2.0 x 1.6 x 0.5 cm in aggregate dimensions and ranging from 0.4 to 0.7 cm in maximum dimension. The specimen is submitted entirely in cassette B1. . C. Received in formalin labeled "Aquiles Bran, proximal ascending colon polyp," is a single segment of abebe soft tissue measuring 0.3 cm in maximum dimension. The specimen is entirely submitted in cassette C1. . D. Received in formalin labeled "Aquiles Bran, cecal polyp x2," is a single segment of abebe soft tissue measuring 0.6 cm in maximum dimension. The specimen is entirely submitted in cassette D1. After careful examination of the specimen container, no additional tissue was recovered. . E. Received in formalin labeled "Aquiles Bran, colon polyp mid transverse," is a single segment of abebe soft tissue measuring 0.5 cm in maximum dimension. The specimen is entirely submitted in cassette E1. . F. Received in formalin labeled "Aquiles Bran, colon polyp 70 cm," are multiple segments of abebe soft tissue measuring 1.5 x 0.7 x 0.2 cm in aggregate dimensions. The specimen is filtered and entirely submitted in cassette F1. (TSD; 01/18/2019) TOB/TOB . 02 Pathologist provided ICD-10: D12.6, D12.3, D12.2, D12.0 . 02 CPT . 642579, 045097, 646134, 781227, 630825, 677073 Specimen Comment: A courtesy copy of this report has been sent to Specimen Comment: [phone], , . Specimen Comment: Report sent to ,DR SANDERS / DR VILLALOBOS Specimen Comment: A duplicate report has been generated due to demographic updates. Performed at: [address], [place], [place] [id number] MD Caleb Devries MD Phone: [phone] [address] [address] PATHOLOGY RPT PROCEDURE Name: SHANTAQUILES Room #: 213-P DIS IN M.R.#: [id number] ������������������ Admission: 01/12/19 ������������������ Date of : 57 Discharge: 01/18/19 Report #: [id number] Path Case #: [id number] Performed at: [address] [id number] MD Trinh Todd MD Phone: [phone]
== END 2019-01-18 16:44 | DRG 377 ==
LOC: ER 20:52 → 2N 01-12 00:31 → EROBS 01-12 00:31 → ICU 01-12 00:31 → 2N 01-12 22:20
PROVIDERS: Internal Medicine; Nurse Practitioner Acute Care; Student in an Organized Health Care Education/Training Program; ADMIT Internal Medicine
DX: K62.5 Hemorrhage of anus and rectum (principal); J96.21 Acute and chronic respiratory failure with hypoxia; I21.4 Non-ST elevation (NSTEMI) myocardial infarction; I50.33 Acute on chronic diastolic (congestive) heart failure; E46 Unspecified protein-calorie malnutrition; Z68.42 Body mass index [BMI] 45.0-49.9, adult; D68.59 Other primary thrombophilia; J44.1 Chronic obstructive pulmonary disease with (acute) exacerbation; I42.9 Cardiomyopathy, unspecified; Z91.041 Radiographic dye allergy status; I11.0 Hypertensive heart disease with heart failure; H40.9 Unspecified glaucoma; M19.90 Unspecified osteoarthritis, unspecified site; F41.1 Generalized anxiety disorder; F32.9 Major depressive disorder, single episode, unspecified; F43.10 Post-traumatic stress disorder, unspecified; F41.0 Panic disorder [episodic paroxysmal anxiety]; E11.42 Type 2 diabetes mellitus with diabetic polyneuropathy; K58.9 Irritable bowel syndrome, unspecified; E78.00 Pure hypercholesterolemia, unspecified; E87.6 Hypokalemia; E87.70 Fluid overload, unspecified; K29.70 Gastritis, unspecified, without bleeding; D12.2 Benign neoplasm of ascending colon; D12.0 Benign neoplasm of cecum; D12.3 Benign neoplasm of transverse colon; E11.65 Type 2 diabetes mellitus with hyperglycemia; I25.10 Atherosclerotic heart disease of native coronary artery without angina pectoris; E03.9 Hypothyroidism, unspecified; K21.9 Gastro-esophageal reflux disease without esophagitis; I16.0 Hypertensive urgency; E66.9 Obesity, unspecified; I48.2 Chronic atrial fibrillation; D86.9 Sarcoidosis, unspecified; D50.9 Iron deficiency anemia, unspecified; I27.20 Pulmonary hypertension, unspecified; K59.03 Drug induced constipation; T40.605A Adverse effect of unspecified narcotics, initial encounter; Y92.89 Other specified places as the place of occurrence of the external cause; Z87.81 Personal history of (healed) traumatic fracture; Z90.710 Acquired absence of both cervix and uterus; Z86.718 Personal history of other venous thrombosis and embolism; Z87.891 Personal history of nicotine dependence; Z95.5 Presence of coronary angioplasty implant and graft; Z95.810 Presence of automatic (implantable) cardiac defibrillator; Z79.01 Long term (current) use of anticoagulants; Z79.82 Long term (current) use of aspirin; Z79.4 Long term (current) use of insulin; Z79.899 Other long term (current) drug therapy; Z88.5 Allergy status to narcotic agent; Z88.8 Allergy status to other drugs, medicaments and biological substances; Z88.6 Allergy status to analgesic agent; Z88.1 Allergy status to other antibiotic agents
CPT/HCPCS: 10081; 62110; 62900; 70005

== ENCOUNTER → 2019-07-04 | Outpatient (CLI) | payer OTHER ==
[~2019-07-04] MED LIST changes: +ASPIR-TRIN325 MG PO; +BIOTENE1000 ML PO; +CALCIUM 600 +1 EA11 PO; +CYCLOBENZAPRINE5 MG PO; +IPRAT-ALBUT 0.5-3 ML INH; +LASIX 40 MG TAB40 M2 PO; +MEDROL4 MG PO; +METOPROLOL TART25 MG PO; +MUCUS RELIEF600 M1 PO; +MULTIVITAMINS1 EAC5 PO; +NORCO 10-325 T1 EACH PO; +NORCO 7.5-3251 EACH PO; +NYSTATIN 100,0015 G1 TOP; +ONDANSETRON HCL4 M2 PO; +POTASSIUM20 PO; +PREDNISONE 10 M10 MG PO; +PROTONIX40 M1 PO; +ROBITUSSIN100 MG/53 PO; +SYNTHROID50 MCG PO; +VITAMIN D2000 UNIT PO; +VITAMINC500 PO; +XALATAN2.5 ML OPHTHALMIC
== END ==
LOC: RAD 01:54
DX: Z12.31 Encounter for screening mammogram for malignant neoplasm of breast (principal)

== ENCOUNTER → 2021-03-13 | Outpatient (CLI) | payer OTHER | LOC: RAD 10:28 | DX: Z12.31 Encounter for screening mammogram for malignant neoplasm of breast (principal) ==

== ENCOUNTER 2021-05-03 10:32 | Inpatient (IN) | payer OTHER ==
[~2021-05-03] VITALS: Ht 172.7 cm; Wt 128.1 kg
--- NOTE | ~2021-05-03 | EMS ---
[address] [address] EMS Patient Care Report Name: AQUILES BRAN Room #: 206-P ADM IN M.R.#: [id number] Admission: 05/03/21 Attend Phys: Luis Shahid MD Discharge: Date of : 57 Report #: [id number] THIS REPORT FOR: //name// Report Transmitted: 05/03/2021 16:31 EMS Care Summary [place], [place]/[facility] Incident [id number] @ 05/03/2021 09:58 Incident Location [address] [place] [address] Patient AQUILES BRAN Female, 65 Years 1955 Patient Address [address] [place] [address] Patient History Congestive Heart Failure (CHF),Diabetes,Cardiac Condition - Other, Patient Allergies No known allergies, Chief Complaint chest pain Disposition Transported No Lights/[place] Dispatch Reason Chest Pain (Non-Traumatic) Transported To [facility] Narrative pt was at Dr office for injury after a fall. she was in waiting room when she started to have CP. pt told staff, who called 911. pt found seated in wheel chair. she mostly c/o foot and knee pain, states CP has largely subsided. pt req eval at [facility]. pt to cot, tx as listed in flow chart, pt given [address] baby ASA. [address] [address] EMS Patient Care Report Name: AQUILES BRAN Room #: 206-P ADM IN .R.#: [id number] Admission: 05/03/21 Attend Phys: Luis Shahid MD Discharge: Date of : 57 Report #: [id number] transport seated on cot. no changes enroute. Initial Vitals @10:23P: 89,CO: 0,SpO2: 81, @10:17P: 80,CO: 0,SpO2: 72, @10:26P: 95,SpO2: 71, @10:21P: 67,CO: 0,SpO2: 96, @10:13P: 80,R: 18,BP: 163/72,Pain: 10/10,GCS: 15,Revised Trauma: 12, Assessments @10:05MENTAL:No Abnormalities,SKIN:Other,HEENT:Head/Face: No Abnormalities,LUNG SOUNDS:ABDOMEN:PELVIS//GI:EXTREMITIES:Left Leg: Other,Right Leg: Other,PULSE:NEURO:No Abnormalities, Impression Chest Pain / Discomfort Procedures @10:2112-Lead ECGResponse: UnchangedSucceeded@10:05ALS AssessmentResponse: Unchanged@10:19Saline Lock 0cc (22 ga) Site: Hand-RightResponse: UnchangedFailed@10:08StretcherResponse: Unchanged@10:193-Lead ECGResponse: Unchanged@10:22Aspirin - 324 Milligrams (mg) - OralResponse: Unchanged Timeline 09:56,Call Received 09:56,Dispatch Notified 09:58,Dispatched 09:59,En Route 10:03,On Scene 10:05,At Patient 10:05,ALS Assessment,Response: Unchanged 10:08,Stretcher,Response: Unchanged 10:13,BP: 163/72 M,PULSE: 80,RR: 18 R,SPO2: Ox,ETCO2: ,BG: ,PAIN: 10,GCS: 15, 10:17,BP: / M,PULSE: 80,RR: R,SPO2: 72 Ox,ETCO2: ,BG: ,PAIN: ,GCS: , 10:19,Saline Lock 0cc 22 ga Site: Hand-Right,Response: UnchangedFailed, 10:19,3-Lead ECG,Response: Unchanged 10:21,12-Lead ECG,Response: UnchangedSucceeded, 10:21,BP: / M,PULSE: 67,RR: R,SPO2: 96 Ox,ETCO2: ,BG: ,PAIN: ,GCS: , 10:22,Aspirin - 324 Milligrams (mg) - Oral,Response: Unchanged 10:23,BP: / M,PULSE: 89,RR: R,SPO2: 81 Ox,ETCO2: ,BG: ,PAIN: ,GCS: , 10:24,Depart Scene 10:26,BP: / M,PULSE: 95,RR: R,SPO2: 71 Ox,ETCO2: ,BG: ,PAIN: ,GCS: , 10:28,At Destination 10:51,Call Closed Disclaimer [address] [address] EMS Patient Care Report Name: AQUILES BRAN Room #: 206-P ADM IN M.R.#: [id number] Admission: 05/03/21 Attend Phys: Luis Shahid MD Discharge: Date of : 57 Report #: [id number] v1.1 Copyright 2020 [employer] This EMS Care Summary contains data elements from the applicable legal record (which may be displayed differently). It is designed to provide pertinent information for the following purposes: continuity of care, clinical quality, and state data reporting. The complete legal record is available to ED staff and administrators of the receiving hospital in [employer] Patient Tracker. All data is provided "as is."
[2021-05-03 10:33] VITALS: BP 170/80
[2021-05-03 10:56] LABS: ABSOLUTE NEUTROPHILS 14.8 thou/uL (1.4-8.2); BASOPHILS 0.5 % (0.0-2.0); EOSINOPHILS 0.9 % (0.0-3.0); HEMATOCRIT 40.5 % (37.0-47.0); HEMOGLOBIN 13.4 gm/dL (12.0-15.0); MCH 30.4 pg (26.0-34.0); MONOCYTES 6.7 % (1.0-8.0); PLATELET COUNT 292 thou/uL (150-400); POLYS 83.9 % (36.0-66.0); RDW 14.4 % (10.5-14.5); WBC 17.7 thou/uL (4.0-11.0)
[2021-05-03 11:05] LABS: ANION GAP 10 mmol/L (7-16); BUN 28 mg/dL (7-18); CALCIUM 9.2 mg/dL (8.5-10.1); CHLORIDE 98 mmol/L (98-107); CO2 25 mmol/L (21-32); CREATININE 1.4 mg/dL (0.6-1.0); GLUCOSE 210 mg/dL (74-106); POTASSIUM 5.1 mmol/L (3.5-5.1); SODIUM 133 mmol/L (136-145)
[2021-05-03 11:16] LABS: ALBUMIN 2.9 g/dL (3.4-5.0); LIPASE 77 U/L (73-393); SGOT 51 U/L (15-37); SGPT 33 U/L (30-65); TOTAL BILIRUBIN 0.4 mg/dL (0.2-1.0); TOTAL PROTEIN 7.5 g/dL (6.4-8.2); TROPONIN-I <0.06 ng/mL (<0.06)
[2021-05-03] MEDS ORDERED: CRESTOR5 MG PO (11:23)
[2021-05-03] MEDS ORDERED: ARAVA20 MG PO (11:24)
[2021-05-03] MEDS ORDERED: LORATIDINE 10 M10 M1 PO (11:26)
[2021-05-03] MEDS ORDERED: JARDIANCE25 MG PO (11:27)
[2021-05-03] MEDS ORDERED: CLOBETASOL 0.0560 GM TOP (11:28)
[2021-05-03] MEDS ORDERED: HUMALOG KW100 UNIT/1 SUBQ (11:29)
[2021-05-03] MEDS ORDERED: TOUJEO SOL300 UNIT/1 SUBQ (11:30)
[2021-05-03] MEDS ORDERED: TRAMADOL 50 MG50 MG PO (11:31)
[2021-05-03] MEDS ORDERED: ASA81BEC PO (11:31)
[2021-05-03] MEDS ORDERED: NEXIUM40 MG PO (11:33)
[2021-05-03] MEDS ORDERED: RAYOS5 MG PO (11:33)
[2021-05-03] MEDS ORDERED: MONTELUKAST SODI4 M1 PO (11:35)
[2021-05-03] MEDS ORDERED: COMBIVENT INH (11:35)
[2021-05-03] MEDS ORDERED: AZELASTINE205.5 MCG/ NARES (11:35)
[2021-05-03] MEDS ORDERED: SPIRONOLACTONE25 MG PO (11:37)
--- NOTE | 2021-05-03 13:00 | EKG ---
[facility] [address] [place] [address] ELECTROCARDIOGRAM REPORT Name: AQUILES BRAN [id number] Admission: 05/03/21 Attend Phys: Discharge: Date of : 57 Report #: [id number] [facility] ED Test Date: 2021-05-03 Test Time: 10:40:29 Pat Name: AQUILES BRAN Department: Room: Gender: F Wrapper Layer: MARI : 1955 Requested By: Allen Craig Order Number: [id number] MD: Boby Burnett Measurements Intervals Sharon Rate: 80 P: WY: QRS: 134 QRSD: 148 T: 60 QT: 458 QTc: 529 Interpretive Statements Afib/ventricular-paced rhythm No further analysis attempted due to paced rhythm Compared to ECG 01/11/2019 21:52:27 No significant changes Electronically Signed On 05-03-2021 13:00:25 CDT by Boby Burnett [email or web address] <ELECTRONICALLY SIGNED> By: Boby Burnett MD, [facility] 05/03/21 1300 1040 1040 Boby Burnett MD, FACC /EPI
[2021-05-03 15:30] VITALS: BP 150/77
[2021-05-03 16:11] VITALS: BP 168/106
[2021-05-03 20:06] VITALS: BP 173/67
--- NOTE | 2021-05-04 04:15 | NUR ---
PT LEFT FOOT HAS A FRACTURE AND IS IN A BOOT. LUNGS ARE CLEAR COMPLAINS OF PAIN . PAIN MEDS GIVEN WITH RELIEF AND SLEPT MOST OF THE NIGHT FOR RELIEF THIS AM COMPLAINS OF NAUSEA NOTED WILL PROVIDE MEDS TO RELIEVE THE ISSUE OF DISCOMFORT. CALL LIGHT WITHIN REACH IF NEEDS ASSESSMENT
[2021-05-04 04:37] LABS: ABSOLUTE NEUTROPHILS 9.6 thou/uL (1.4-8.2); BASOPHILS 0.5 % (0.0-2.0); EOSINOPHILS 0.9 % (0.0-3.0); HEMATOCRIT 42.2 % (37.0-47.0); HEMOGLOBIN 13.5 gm/dL (12.0-15.0); MCH 29.9 pg (26.0-34.0); MCHC 31.9 g/dL (28.0-37.0); MCV 93.5 fL (80.0-100.0); MONOCYTES 7.3 % (1.0-8.0); PLATELET COUNT 296 thou/uL (150-400); POLYS 77.3 % (36.0-66.0); RBC 4.51 mil/uL (4.20-5.00); RDW 14.4 % (10.5-14.5); WBC 12.4 thou/uL (4.0-11.0)
[2021-05-04 04:49] LABS: CALCIUM 9.3 mg/dL (8.5-10.1); CREATININE 1.4 mg/dL (0.6-1.0); MAGNESIUM 2.9 mg/dL (1.8-2.4); POTASSIUM 4.9 mmol/L (3.5-5.1)
[2021-05-04 04:59] VITALS: BP 128/61
[2021-05-04 08:00] VITALS: BP 142/48
[2021-05-04 08:07] VITALS: BP 145/51
--- NOTE | 2021-05-04 10:47 | 2DMMODE ---
[facility] [place] [address] 2 D/M-MODE ECHOCARDIOGRAM Name: AQUILES BRAN Room #: 206-P ADM IN M.R.#: [id number] Admission: 05/03/21 Attend Phys: Luis Shahid MD Discharge: Date of : 57 Report #: [id number] THIS REPORT FOR: cc: Oliver Quintana Brady DO Park,Kamran Cox MD ~ APPROVED REPORT Study performed: 05/04/2021 07:43:27 EXAM: Comprehensive 2D, Doppler, and color-flow Echocardiogram Patient Location: Bedside Room #: 206 Status: on-call BSA: 2.30 HR: 80 bpm BP: 128/61 mmHg Rhythm: Atrial Fibrillation Other Information Study Quality: Fair Technically limited study due to morbid obesity. Indications Chest Pain Hx: CAD, PCI, Afib, ICD, CHF, COPD, obese. 2D Dimensions IVSd: 8.29 (7-11mm) LVDd: 45.92 mm PWd: 8.92 (7-11mm) LVDs: 33.03 (25-40mm) Left Atrium: 41.90 (27-40mm) Aortic Root: 26.00 mm Volumes Left Atrial Volume (Systole) Single Plane 4CH: 71.13 mL Single Plane 2CH: 63.98 mL Aortic Valve AoV Peak Dimitri.: 1.73 m/s AO Peak Gr.: 11.94 mmHg LVOT Max P.36 mmHg LVOT Max V: 1.16 m/s [facility] [address] [address] 2 D/M-MODE ECHOCARDIOGRAM Name: AQUILES BRAN Room #: 206-P [facility] IN ..#: [id number] Admission: 05/03/21 Attend Phys: Luis Shahid MD Discharge: Date of : 57 Report #: [id number] Mitral Valve MV Decel. Time: 218.98 ms MV E Max Dimitri.: 1.52 m/s Tricuspid Valve RAP Estimate: 5.00 mmHg Left Ventricle The left ventricle is normal size. There is normal LV segmental wall motion. There is normal left ventricular wall thickness. Left ventricular systolic function is normal. LVEF is 60-65%. This study is not technically sufficient to allow evaluation of the LV diastolic function. Right Ventricle The right ventricle is normal size. The right ventricular systolic function is normal. Device lead is present in the right ventricle. Atria Left atrium is mildly dilated. The right atrium size is normal. Aortic Valve Aortic valve is not well visualized. Mild aortic regurgitation. There is no aortic valvular stenosis. Mitral Valve The mitral valve is normal in structure. Trace mitral regurgitation. Tricuspid Valve Tricuspid valve is not well visualized and difficult to assess. Unable to assess PA pressure. Pulmonic Valve Pulmonic valve is not well visualized. Great Vessels The aortic root is normal in size. Ascending aorta is not well visualized. IVC is normal in size and collapses >50% with inspiration. Pericardium There is no pericardial effusion. <Conclusion> [facility] [address] [place] [address] 2 D/M-MODE ECHOCARDIOGRAM Name: AQUILES BRAN Room #: 206-P ADM IN M.R.#: [id number] Admission: 05/03/21 Attend Phys: Luis Shahid MD Discharge: Date of : 57 Report #: [id number] The left ventricle is normal size. There is normal left ventricular wall thickness. Left ventricular systolic function is normal. The right ventricle is normal size. Device lead is present in the right ventricle. Left atrium is mildly dilated. Mild aortic regurgitation. Trace mitral regurgitation. <ELECTRONICALLY SIGNED> By: Kamran Herron MD 05/04/21 1046 1046 Kamran Herron MD /INF
[2021-05-04 12:10] VITALS: BP 142/48
[2021-05-04 16:33] VITALS: BP 166/53
--- NOTE | 2021-05-04 18:22 | NUR ---
PT CONTINUOUSLY C/O PX TO BLE. REPORTED THAT PO PX MEDS ONLY WORK FOR A SHORT TIME WHEN GIVEN. PT ABLE TO TURN SELF.
[2021-05-04 19:36] VITALS: BP 152/68
[2021-05-05 03:34] VITALS: BP 140/92
[2021-05-05 07:49] VITALS: BP 144/71
[2021-05-05 11:37] VITALS: BP 119/50
--- NOTE | 2021-05-05 15:13 | NUR ---
PT ALERT AND ORIENTED TIMES FOUR. VSS, PACED ON TELE. PT C/O PAIN PRN PAIN MEDICAIONS GIVEN SEVERAL TIMES WITH SOME RELEIF. PT TOELARTES MEDS AND MEALS. PT UP TO BSC WITH ASSIST OF ONE. WILL CONTINUE TO MONITOR.
[2021-05-05 16:31] VITALS: BP 135/76
[2021-05-05 19:51] VITALS: BP 169/59
[2021-05-06 04:40] VITALS: BP 147/69
[2021-05-06 05:14] VITALS: BP 158/64
[2021-05-06 08:00] VITALS: BP 135/65
[2021-05-06 12:00] VITALS: BP 142/72
[2021-05-06 15:00] VITALS: BP 109/53
--- NOTE | 2021-05-06 16:26 | NUR ---
ASSESSMENT: CM REVIEWED CHART AND MET WITH PT AT THE BEDSIDE. PT IS ALERT AND ORIENTED X4. PT REPORTS THAT SHE LIVES IN AN INDEPENDENT LIVING APT ALONE AT [facility]. PT REPORTS TAKING THE ELEVATOR TO HER APT. PT REPORTS SHE HAS A CANE, ROLLATER WALKER, POWER CHAIR TO ASSIST WITH AMBULATION. PT REPORTS SHE IS CURRENTLY IN SERVICES WITH [facility]. CM NOTIFIED [facility] OF ADMISSION AND FAXED UPDATED CLINICAL. PT IS HOPEFUL TO RETURN HOME. PT IS HAVING A STRESS TEST TODAY. CM WILL CONTINUE TO FOLLOW TO ASSIST NEEDED.
[2021-05-06 19:24] VITALS: BP 125/40
[2021-05-07 00:14] VITALS: BP 140/54
[2021-05-07 03:03] LABS: HEMATOCRIT 37.1 % (37.0-47.0); HEMOGLOBIN 12.1 gm/dL (12.0-15.0); MCH 30.5 pg (26.0-34.0); MCHC 32.7 g/dL (28.0-37.0); MCV 93.3 fL (80.0-100.0); RBC 3.98 mil/uL (4.20-5.00); RDW 14.8 % (10.5-14.5); WBC 10.8 thou/uL (4.0-11.0)
[2021-05-07 03:30] VITALS: BP 120/68
[2021-05-07 03:44] LABS: CALCIUM 8.5 mg/dL (8.5-10.1); CREATININE 1.8 mg/dL (0.6-1.0); POTASSIUM 4.9 mmol/L (3.5-5.1)
--- NOTE | 2021-05-07 07:03 | NUR ---
PAIN FAIRLY CONTROLLED.SHE WASH HERSELF THIS MORNING.UNABLE TO SLEEP WELL.MONITOR SHOWS V-PACED.POC CONTINUED.
[2021-05-07 07:31] VITALS: BP 114/52
[2021-05-07 11:30] VITALS: BP 134/57
[2021-05-07 16:07] VITALS: BP 100/62
--- NOTE | 2021-05-07 16:18 | NUR ---
CARE TEAM INDICATED THAT PT COULD BE MEDICALLY STABLE TO DC HOME THIS DAY LONG STRESS TEST WAS NEGATIVE. CM MET WITH PT AT BEDSIDE THIS DAY. PT ASKED ABOUT FWW AND BCS CM INDICATED THAT INSURNACE DOESN'T COVER BUT THAT THEY COULD BE AQUIRED AT [facility], [facility], OR [facility]. PT INDICATED SHE WANTED TO RESUME SERVICES WITH [facility] UPON DC AND THAT HER DTR COULD PROVIDE TRANSPORT BETWEEN 1300-160 TODAY. THEN NURSE CALLED BACK AND INDICATED PT AND DTR WANTED SHORT TERM POST ACUTE CARE STAY. CM SPOKE WITH PHYSICIAN AND HE WAS AGREEABLE WITH REFERRALS BEING SENT FOR SNF. PT REQUESTED THAT REFERRAL BE SENT TO [facility]. [facility]EPT AND THEY HAVE SUBMITTED FOR INSURANCE AUTH. CM NOTIFIED PT. CM FOLLOWING REGARDING DC PLANNING.
[2021-05-07 20:00] VITALS: BP 148/58
--- NOTE | 2021-05-08 04:12 | NUR ---
ASSUMED CARE OF PT AT 1900, PT IS A/O X 4, ASSESSMENT COMPLETED NOTED. PT BLOOD SUGARS HAVE BEEN ELEVATED AT 300+, OUTBOARD MOTOR TESTER NOTIFIED AND ORDERS RECIEVED TO BE INITIATED IN THE MORNING. PT IS ASYMPTOMATIC OF HYPERGLYCEMIA S/S AT THIS TIME. WILL CONTINUE TO WORK TOWARDS PT'S POC, FALL PRECAUTIONS IN PLACE. CALL LIGHT WITHIN REACH. PT TO POSSIBLY DC TO REHAB ON 05/08.
[2021-05-08 04:48] VITALS: BP 147/82
[2021-05-08 07:54] VITALS: BP 139/59
[2021-05-08 11:56] VITALS: BP 122/52
[2021-05-08] MEDS ORDERED: BENICAR20 MG PO (12:05)
[2021-05-08] MEDS ORDERED: EFFEXOR XR75 MG PO (12:06)
[2021-05-08] MEDS ORDERED: HYDROCODON-ACE1 EAC7 PO (12:06)
--- NOTE | 2021-05-08 16:21 | NUR ---
rec auth for [facility]. Sp with patient, dtr and left message for son. Plan dc to [facility]. Faxed orders, chart copied. Rn has number for reports. Transport time 1500 via [facility] van family and patient aware no further needs.
== END 2021-05-08 16:00 | DRG 292 ==
LOC: ER 10:32 → 2N 15:45 → EROBS 15:45 → 2N 15:47
PROVIDERS: Emergency Medicine; Nurse Practitioner; ADMIT Hospitalist; ATTEND Hospitalist
PROC: 4B02XTZ Measurement of Cardiac Defibrillator, External Approach (ICD-10-PCS; principal; 2021-05-03)
DX: I13.0 Hypertensive heart and chronic kidney disease with heart failure and stage 1 through stage 4 chronic kidney disease, or unspecified chronic kidney disease (principal); I48.20 Chronic atrial fibrillation, unspecified; E44.0 Moderate protein-calorie malnutrition; Z68.41 Body mass index [BMI] 40.0-44.9, adult; N17.9 Acute kidney failure, unspecified; I25.10 Atherosclerotic heart disease of native coronary artery without angina pectoris; R07.89 Other chest pain; R55 Syncope and collapse; M19.90 Unspecified osteoarthritis, unspecified site; F41.1 Generalized anxiety disorder; F32.9 Major depressive disorder, single episode, unspecified; J44.9 Chronic obstructive pulmonary disease, unspecified; E78.00 Pure hypercholesterolemia, unspecified; E11.42 Type 2 diabetes mellitus with diabetic polyneuropathy; I50.9 Heart failure, unspecified; K59.00 Constipation, unspecified; E11.22 Type 2 diabetes mellitus with diabetic chronic kidney disease; E86.0 Dehydration; D72.829 Elevated white blood cell count, unspecified; D50.9 Iron deficiency anemia, unspecified; N18.30 Chronic kidney disease, stage 3 unspecified; E78.5 Hyperlipidemia, unspecified; K29.70 Gastritis, unspecified, without bleeding; K21.9 Gastro-esophageal reflux disease without esophagitis; Z88.1 Allergy status to other antibiotic agents; Z90.711 Acquired absence of uterus with remaining cervical stump; Z79.4 Long term (current) use of insulin; Z86.718 Personal history of other venous thrombosis and embolism; Z95.5 Presence of coronary angioplasty implant and graft; Z95.810 Presence of automatic (implantable) cardiac defibrillator; Z88.8 Allergy status to other drugs, medicaments and biological substances; Z86.2 Personal history of diseases of the blood and blood-forming organs and certain disorders involving the immune mechanism; Z88.6 Allergy status to analgesic agent; Z91.041 Radiographic dye allergy status; Z87.891 Personal history of nicotine dependence; Z87.81 Personal history of (healed) traumatic fracture; Z79.899 Other long term (current) drug therapy; Z79.82 Long term (current) use of aspirin
CPT/HCPCS: 10081

== ENCOUNTER 2021-05-26 01:21 | Emergency (ER) | payer OTHER ==
[~2021-05-26] VITALS: Ht 172.7 cm; Wt 122.5 kg
[~2021-05-26 01:21] MED LIST changes: +ARAVA20 MG PO; +AZELASTINE205.5 MCG/ NARES; +BENICAR20 MG PO; +CLOBETASOL 0.0560 GM TOP; +COMBIVENT INH; +CRESTOR5 MG PO; +HUMALOG KW100 UNIT/1 SUBQ; +HYDROCODON-ACE1 EAC7 PO; +JARDIANCE25 MG PO; +LORATIDINE 10 M10 M1 PO; +MONTELUKAST SODI4 M1 PO; +RAYOS5 MG PO; +SPIRONOLACTONE25 MG PO; +TOUJEO SOL300 UNIT/1 SUBQ
[2021-05-26 02:06] LABS: ABSOLUTE NEUTROPHILS 10.1 thou/uL (1.4-8.2); BASOPHILS 0.3 % (0.0-2.0); EOSINOPHILS 0.1 % (0.0-3.0); HEMATOCRIT 41.5 % (37.0-47.0); HEMOGLOBIN 13.1 gm/dL (12.0-15.0); LYMPHOCYTES 5.9 % (24.0-44.0); MCH 28.9 pg (26.0-34.0); MCHC 31.7 g/dL (28.0-37.0); MCV 91.2 fL (80.0-100.0); MONOCYTES 2.8 % (1.0-8.0); PLATELET COUNT 387 thou/uL (150-400); POLYS 90.9 % (36.0-66.0); RBC 4.55 mil/uL (4.20-5.00); RDW 14.9 % (10.5-14.5); WBC 11.2 thou/uL (4.0-11.0)
[2021-05-26 02:19] LABS: ANION GAP 7 mmol/L (7-16); BUN 14 mg/dL (7-18); CALCIUM 8.7 mg/dL (8.5-10.1); CHLORIDE 105 mmol/L (98-107); CO2 28 mmol/L (21-32); CREATININE 1.3 mg/dL (0.6-1.0); GLUCOSE 309 mg/dL (74-106); POTASSIUM 5.1 mmol/L (3.5-5.1); SODIUM 140 mmol/L (136-145)
[2021-05-26 02:29] LABS: ALBUMIN 2.7 g/dL (3.4-5.0); SGOT 34 U/L (15-37); SGPT 21 U/L (30-65); TOTAL BILIRUBIN 0.2 mg/dL (0.2-1.0); TOTAL PROTEIN 6.9 g/dL (6.4-8.2); TROPONIN-I <0.06 ng/mL (<0.06)
[2021-05-26] MEDS ORDERED: DOXYCYCLINE 10100 MG PO (03:35)
[2021-05-26 04:00] VITALS: BP 148/74
== END 2021-05-26 04:01 | disposition home or self-care (01) ==
LOC: ER 01:21
PROVIDERS: Student in an Organized Health Care Education/Training Program
DX: J44.9 Chronic obstructive pulmonary disease, unspecified (principal); R06.02 Shortness of breath; I11.0 Hypertensive heart disease with heart failure; E11.9 Type 2 diabetes mellitus without complications; F32.9 Major depressive disorder, single episode, unspecified; F41.9 Anxiety disorder, unspecified; D86.9 Sarcoidosis, unspecified; E78.00 Pure hypercholesterolemia, unspecified; G62.9 Polyneuropathy, unspecified; I50.9 Heart failure, unspecified; I48.91 Unspecified atrial fibrillation; Z20.822 Contact with and (suspected) exposure to COVID-19; Z79.891 Long term (current) use of opiate analgesic; Z90.711 Acquired absence of uterus with remaining cervical stump; Z79.4 Long term (current) use of insulin; Z79.899 Other long term (current) drug therapy; Z79.82 Long term (current) use of aspirin; Z79.51 Long term (current) use of inhaled steroids; Z88.5 Allergy status to narcotic agent; Z88.6 Allergy status to analgesic agent; Z91.041 Radiographic dye allergy status; Z91.011 Allergy to milk products